=== PATIENT | female | born 1945 | race Caucasian/White ===

== ENCOUNTER → 2017-04-26 | Day surgery (SDC) | payer OTHER ==
[2017-04-18 11:31] VITALS: BMI 48.0
[~2017-04-26] VITALS: Ht 149.9 cm; Wt 110.9 kg
[~2017-04-26] MED LIST: ACET-1256 PO; ADVIN25/60 INH; ALBINS/ INH; AMLO-110 PO; ATOR-24 PO; BENZ100C84 PO; BUTA1CAP17 PO; DOCU-94 PO; EPP3/2 IM; ERGO500037 PO; HYDR12.55 PO; LEVO50TA6 PO; LIDOCAINE HCL 2% 2 ML VIAL (20MG/ML) ONE; LOSA1TAB PO; NORT10CA2 PO; ONDA4TAB46 PO; ONDANSETRON INJ 2 MG/ML 2 ML VIAL IV PRN; PANT40TA PO; POLY335019 PO; PROPOFOL IV EMULSION 10 MG/ML 20 ML VIAL IV ONE; SENNTAB13 PO; SERT-234 PO; VNTHFA/IN INH
[2017-04-26 12:24] VITALS: Ht 149.9 cm; Wt 110.9 kg
--- NOTE | 2017-04-26 12:35 | Endo History and Physical ---
History & Physical Date of Service: Apr 26, 2017. Chief Complaint: HEMATEST POSITIVE STOOL Referring Physician: DR SKINNER History of Present Illness Patient referred for evaluation of anemia associated with heme positive stools. She denies having difficulty swallowing pain with swallowing. She does note having intermittent bright red blood from the rectum which she attributes to hemorrhoids. Past Medical History Diabetes, High Cholesterol, Hypertension Past Surgical History Hx Cardiac Surgery: No Hx Internal Defibrillator: No Hx Pacemaker: No Hx Abdominal Surgery: Yes (COLON RESECTION, WILIAN BSO, CHANEL) Hx of Implantable Prosthesis: No Hx Post-Op Nausea and Vomiting: No Hx Cancer Surgery: No Hx Thoracic Surgery: No Hx Orthopedic: Yes (LT/RT CTR) Hx Urinary Tract Surgery: No Hysterectomy Sigmoid colectomy Cholecystectomy Family History IBD Social History Smoking Status: Never Smoker Hx Substance Use: No Hx Alcohol Use: No Allergies Coded Allergies: BEE STING (Verified Allergy, Unknown, ANAPHYLAXIS, 04/18/17) NO KNOWN DRUG ALLERGIES (Verified Allergy, Unknown, NONE, 04/26/17) Unclassified Drugs (Verified Adverse Reaction, Severe, ASTHMA EXAC TO FRAGRANCES / PERFUMES, 04/18/17) Current Medications Reported Home Medications Medications Dose Route/Sig Max Daily Dose Days Date Category Dose Instructions Vitamin D 73262 Unit (Ergocalciferol) 50,000 Unit Cap 50,000 Unit PO WK 04/18/17 Reported Colace (Docusate Sodium) 100 Mg Cap 1 Cap PO QAM 04/18/17 Reported Miralax (Polyethylene Glycol 3350) 1 Pow Pow 17 Gm PO DAILY PRN 04/18/17 Reported Proventil 0.083% 2.5MG/3ML (Albuterol Sulf) 2.5 Mg/3 Ml Nebu 2.5 Mg INH QID PRN 04/18/17 Reported Zoloft (Sertraline HCl) 100 Mg Tab 100 Mg PO HS 04/18/17 Reported Advair Diskus 250/50 60 Dose (Fluticasone Prop/Salmeterol) 1 Ea Aerp 1 Puff INH BID 04/18/17 Reported Cozaar (Losartan Potassium) 25 Mg Tab 25 Mg PO QAM 09/22/16 Reported Tylenol (Acetaminophen) 500 Mg Tab 500 Mg PO Q6H PRN 09/22/16 Reported Tessalon Perles (Benzonatate) 100 Mg Cap 100 Mg PO UD PRN 09/22/16 Reported Stool Softener Plus Laxat (Sennosides-Docusate Sodium) 1 Tab Tab 1 Tab PO HS 09/22/16 Reported Pamelor (Nortriptyline HCl) 10 Mg Cap 2 Tabs PO HS 09/22/16 Reported Hydrochlorothiazide 12.5 Mg Tab 1 Tab PO 4XWEEK 09/22/16 Reported Monday Levothyroxine Sodium 50 Mcg Tab 1 Tab PO QAM 09/22/16 Reported Protonix (Pantoprazole Sodium) 40 Mg Tab 40 Mg PO QAM 11/13/15 Reported Fioricet (Vbgusgjhwy-Paycmhyujsepv-Wvlaj) 1 Cap Cap 1 Cap PO UD PRN 11/02/15 Reported Norvasc (Amlodipine Besylate) 5 Mg Tab 5 Mg PO NOON 11/02/15 Reported Lipitor (Atorvastatin Calcium) 40 Mg Tab 40 Mg PO QPM 11/02/15 Reported Zofran (Ondansetron HCl) 4 Mg Tab 4 Mg PO Q6H PRN 11/02/15 Reported Epipen (Epinephrine) 0.3 Mg/0.3 Ml Inj 0.3 Mg IM UD PRN 10/06/15 Reported Vital Signs Weight (Kilograms): 110.91 Height (Feet): 4 Height (Inches): 11 Date Time Temp Pulse Resp B/P (MAP) Pulse Ox O2 Delivery O2 Flow Rate FiO2 04/26/17 12:30 36.5 74 18 159/76 (103) 99 Room Air Physical Exam General Appearance: no apparent distress Respiratory/Chest: Auscultation: breath sounds normal Cardiovascular: Heart Auscultation: RRR Abdomen: Inspection & Palpation: soft Assessment and Plan Patient referred for upper endoscopy and colonoscopy to evaluate anemia associated with heme positive stools. We've discussed the risks to include bleeding, infection, perforation, need for follow-up surgeries, and missed colonic polyps.
--- NOTE | 2017-04-26 13:50 | GI REPORT ---
Procedure Date: 04/26/2017 1:10 PM Procedure: Upper GI endoscopy Indications: Iron deficiency anemia Medicines: Monitored Anesthesia Care Complications: No immediate complications. Estimated blood loss: Minimal. Estimated Blood Loss: Estimated blood loss was minimal. Procedure: Pre-Anesthesia Assessment: - Prior to the procedure, a History and Physical was performed, and patient medications, allergies and sensitivities were reviewed. The patient's tolerance of previous anesthesia was reviewed. - The risks and benefits of the procedure and the sedation options and risks were discussed with the patient. All questions were answered and informed consent was obtained. - Patient identification and proposed procedure were verified prior to the procedure by the physician, the nurse and the rn traveling. The procedure was verified in the procedure room. - Pre-procedure physical examination revealed no contraindications to sedation. - ASA Grade Assessment: III - A patient with severe systemic disease. - After reviewing the risks and benefits, the patient was deemed in satisfactory condition to undergo the procedure. - The anesthesia plan was to use monitored anesthesia care (MAC). - Immediately prior to administration of medications, the patient was re-assessed for adequacy to receive sedatives. - The heart rate, respiratory rate, oxygen saturations, blood pressure, adequacy of pulmonary ventilation, and response to care were monitored throughout the procedure. - The physical status of the patient was re-assessed after the procedure. After obtaining informed consent, the endoscope was passed under direct vision. Throughout the procedure, the patient's blood pressure, pulse, and oxygen saturations were monitored continuously. The scope was introduced through the mouth, and advanced to the third part of duodenum. The upper GI endoscopy was accomplished without difficulty. The patient tolerated the procedure well. Findings: The examined esophagus was normal. The Z-line was regular and was found 35 cm from the incisors. The entire examined stomach was normal. The examined duodenum was normal. Biopsies for histology were taken with a cold forceps for evaluation of celiac disease. Estimated blood loss was minimal. Impression: - Normal esophagus. - Z-line regular, 35 cm from the incisors. - Normal stomach. - Normal examined duodenum. Biopsied. Recommendation: - Perform a colonoscopy today. - Await pathology results. Ramya Arias D.O. Ramya Arias, 04/26/2017 1:49:45 PM This report has been signed electronically. Note Initiated On: 04/26/2017 1:10 PM I attest to the content of the Intraoperative Record and orders documented therein, exceptions below
--- NOTE | 2017-04-26 13:54 | GI REPORT ---
Procedure Date: 04/26/2017 1:10 PM Procedure: Colonoscopy Indications: Screening for colorectal malignant neoplasm Medicines: Monitored Anesthesia Care Complications: No immediate complications. Estimated blood loss: Minimal. Estimated Blood Loss: Estimated blood loss was minimal. Procedure: Pre-Anesthesia Assessment: - Prior to the procedure, a History and Physical was performed, and patient medications, allergies and sensitivities were reviewed. The patient's tolerance of previous anesthesia was reviewed. - The risks and benefits of the procedure and the sedation options and risks were discussed with the patient. All questions were answered and informed consent was obtained. - Patient identification and proposed procedure were verified prior to the procedure by the physician, the nurse and the tube room supervisor. The procedure was verified in the procedure room. - Pre-procedure physical examination revealed no contraindications to sedation. - ASA Grade Assessment: III - A patient with severe systemic disease. - After reviewing the risks and benefits, the patient was deemed in satisfactory condition to undergo the procedure. - The anesthesia plan was to use monitored anesthesia care (MAC). - Immediately prior to administration of medications, the patient was re-assessed for adequacy to receive sedatives. - The heart rate, respiratory rate, oxygen saturations, blood pressure, adequacy of pulmonary ventilation, and response to care were monitored throughout the procedure. - The physical status of the patient was re-assessed after the procedure. After I obtained informed consent, the scope was passed under direct vision. Throughout the procedure, the patient's blood pressure, pulse, and oxygen saturations were monitored continuously. The scope was introduced through the anus and advanced to the terminal ileum. The colonoscopy was performed without difficulty. The patient tolerated the procedure well. The quality of the bowel preparation was good. Findings: The perianal and digital rectal examinations were normal. Pertinent negatives include normal sphincter tone. The terminal ileum appeared normal. A 6 mm polyp was found in the hepatic flexure. The polyp was sessile. The polyp was removed with a cold snare. Resection and retrieval were complete. Estimated blood loss was minimal. Two sessile polyps were found in the transverse colon. The polyps were 4 to 6 mm in size. These polyps were removed with a cold snare. Resection and retrieval were complete. Estimated blood loss was minimal. A 6 mm polyp was found in the descending colon. The polyp was sessile. The polyp was removed with a cold snare. Resection and retrieval were complete. Estimated blood loss was minimal. A 3 mm polyp was found in the rectum. The polyp was sessile. The polyp was removed with a cold snare. Resection and retrieval were complete. Estimated blood loss was minimal. Many medium-mouthed diverticula were found in the sigmoid colon. Internal hemorrhoids were found during retroflexion. The hemorrhoids were moderate. The exam was otherwise without abnormality. Impression: - The examined portion of the ileum was normal. - One 6 mm polyp at the hepatic flexure, removed with a cold snare. Resected and retrieved. - Two 4 to 6 mm polyps in the transverse colon, removed with a cold snare. Resected and retrieved. - One 6 mm polyp in the descending colon, removed with a cold snare. Resected and retrieved. - One 3 mm polyp in the rectum, removed with a cold snare. Resected and retrieved. - Mild diverticulosis in the sigmoid colon. - Internal hemorrhoids. - The examination was otherwise normal. Recommendation: - Discharge patient to home (ambulatory). - Advance diet as tolerated today. - Await pathology results. - Repeat colonoscopy in 3 - 5 years for surveillance based on pathology results. - Return to referring physician as previously scheduled. - Consider a CT of the abdomen to evaluate for evidence of a small bowel mass. Ramya Arias D.O. Ramya Arias, DO 04/26/2017 1:54:16 PM This report has been signed electronically. Note Initiated On: 04/26/2017 1:10 PM I attest to the content of the Intraoperative Record and orders documented therein, exceptions below
--- NOTE | 2017-04-26 13:56 | Discharge Instructions ---
Endoscopy Patient Instructions Date / Procedure(s) Performed Apr 26, 2017. Colonoscopy, EGD Allergy Information Coded Allergies: BEE STING (Verified Allergy, Unknown, ANAPHYLAXIS, 04/26/17) NO KNOWN DRUG ALLERGIES (Verified Allergy, Unknown, NONE, 04/26/17) Unclassified Drugs (Verified Adverse Reaction, Severe, ASTHMA EXAC TO FRAGRANCES / PERFUMES, 04/26/17) Discharge Date / Findings Apr 26, 2017. Normal upper endoscopy Several colonic polyps removed today Internal hemorrhoids Mild diverticulosis of the colon Medication Instructions Reported Home Medications Medications Dose Route/Sig Max Daily Dose Days Date Category Dose Instructions Vitamin D 43691 Unit (Ergocalciferol) 50,000 Unit Cap 50,000 Unit PO WK 04/18/17 Reported Colace (Docusate Sodium) 100 Mg Cap 1 Cap PO QAM 04/18/17 Reported Miralax (Polyethylene Glycol 3350) 1 Pow Pow 17 Gm PO DAILY PRN 04/18/17 Reported Proventil 0.083% 2.5MG/3ML (Albuterol Sulf) 2.5 Mg/3 Ml Nebu 2.5 Mg INH QID PRN 04/18/17 Reported Zoloft (Sertraline HCl) 100 Mg Tab 100 Mg PO HS 04/18/17 Reported Advair Diskus 250/50 60 Dose (Fluticasone Prop/Salmeterol) 1 Ea Aerp 1 Puff INH BID 04/18/17 Reported Cozaar (Losartan Potassium) 25 Mg Tab 25 Mg PO QAM 09/22/16 Reported Tylenol (Acetaminophen) 500 Mg Tab 500 Mg PO Q6H PRN 09/22/16 Reported Tessalon Perles (Benzonatate) 100 Mg Cap 100 Mg PO UD PRN 09/22/16 Reported Stool Softener Plus Laxat (Sennosides-Docusate Sodium) 1 Tab Tab 1 Tab PO HS 09/22/16 Reported Pamelor (Nortriptyline HCl) 10 Mg Cap 2 Tabs PO HS 09/22/16 Reported Hydrochlorothiazide 12.5 Mg Tab 1 Tab PO 4XWEEK 09/22/16 Reported Monday Levothyroxine Sodium 50 Mcg Tab 1 Tab PO QAM 09/22/16 Reported Protonix (Pantoprazole Sodium) 40 Mg Tab 40 Mg PO QAM 11/13/15 Reported Fioricet (Qgklvkfkay-Lsydgfrulxhof-Guapc) 1 Cap Cap 1 Cap PO UD PRN 11/02/15 Reported Norvasc (Amlodipine Besylate) 5 Mg Tab 5 Mg PO NOON 11/02/15 Reported Lipitor (Atorvastatin Calcium) 40 Mg Tab 40 Mg PO QPM 11/02/15 Reported Zofran (Ondansetron HCl) 4 Mg Tab 4 Mg PO Q6H PRN 11/02/15 Reported Epipen (Epinephrine) 0.3 Mg/0.3 Ml Inj 0.3 Mg IM UD PRN 10/06/15 Reported Provider Instructions Activity Restrictions - No exercising or heavy lifting for 24 hours. - Do not drink alcohol the day of the procedure. - Do not drive a car or operate machinery until the day after the procedure. - Do not make any important decisions or sign important papers in 24 hours after the procedure. Following Day: - Return to full activity which may include returning to work/school. Diet Start your diet with liquids and light foods (jello, soup, juice, toast). Then eat your usual diet if not nauseated. Treatment For Common After Affects For mild abdominal pain, bloating, or excessive gas: - Rest - Eat lightly - Lie on right side Follow-Up Information Follow-up with DR SKINNER as scheduled Await pathology results Will likely recommend repeat colonoscopy in 3-5 years Anesthesia Information What You Should Know You have had a procedure that required some medicine to reduce anxiety and discomfort. This treatment is called moderate sedation. After receiving the treatment, you may be sleepy, but you will be able to breathe on your own. The effects of the treatment may last for several hours. Follow these instructions along with Activity/Diet recommendations noted above: * Do NOT do anything where dizziness or clumsiness would be dangerous. * Rest quietly at home today, then you can be up and about tomorrow. * Have a responsible person stay with you the rest of today. * You may have had an I.V. today. If so, you may take the dressing off later today. Recommendations Call your doctor if: * Trouble breathing * Continuous vomiting for more than 24 hours * Temperature above 101 degrees * Severe abdominal pain or bloating * Pain not relieved by pain medicine ordered * There is increased drainage or redness from any incision * A large amount of rectal bleeding greater than 2-3 tablespoons. (If you had a polyp/s removed or have hemorrhoids, a small amount of blood - from the rectum is to be expected.) * You have any unanswered questions or concerns. IN THE EVENT OF A SERIOUS EMERGENCY, GO TO THE NEAREST EMERGENCY ROOM Your discharge instructions were prepared by provider Ramya Arias. Patient Instructions Signature Page Myrtle Whitman Patient (or Guardian) Signature/Date: I have read and understand the instructions given to me by my caregivers. Caregiver/RN/Doctor Signature/Date: The above-named patient and/or guardian has received patient instructions on this date. + Original Patient Signature Page (only) stays with chart. Please make copy for patient.
--- NOTE | 2017-04-26 14:06 | Anesthesiology Progress Note ---
Anesthesia Post Op Note Date & Time Apr 26, 2017 at 14:06 Vital Signs Pain Intensity: 0 Vital Signs Past 12 Hours Date Time Temp Pulse Resp B/P (MAP) Pulse Ox O2 Delivery O2 Flow Rate FiO2 04/26/17 12:30 36.5 74 18 159/76 (103) 99 Room Air Notes Mental Status: alert / awake / arousable, participated in evaluation Pt Amnestic to Procedure: Yes Nausea / Vomiting: adequately controlled Pain: adequately controlled Airway Patency, RR, SpO2: stable & adequate BP & HR: stable & adequate Hydration State: stable & adequate Anesthetic Complications: no major complications apparent
[2017-04-26 14:19] VITALS: BP 147/76; PULSE 64; O2SAT 100
== END | disposition home or self-care (01) ==
LOC: C.GI 11:45
PROVIDERS: ATTEND Internal Medicine Gastroenterology
DX: R19.5 Other fecal abnormalities (principal); D50.9 Iron deficiency anemia, unspecified; D12.3 Benign neoplasm of transverse colon; D12.4 Benign neoplasm of descending colon; K62.1 Rectal polyp; K64.8 Other hemorrhoids; K57.30 Diverticulosis of large intestine without perforation or abscess without bleeding; F32.9 Major depressive disorder, single episode, unspecified; I48.0 Paroxysmal atrial fibrillation; E66.01 Morbid (severe) obesity due to excess calories; E11.9 Type 2 diabetes mellitus without complications; J45.909 Unspecified asthma, uncomplicated; G47.33 Obstructive sleep apnea (adult) (pediatric); Z68.42 Body mass index [BMI] 45.0-49.9, adult; Z90.49 Acquired absence of other specified parts of digestive tract; Z79.899 Other long term (current) drug therapy; Z86.73 Personal history of transient ischemic attack (TIA), and cerebral infarction without residual deficits

== ENCOUNTER 2017-05-29 16:28 | Emergency (ER) | payer OTHER ==
[~2017-05-29] VITALS: Ht 149.9 cm; Wt 109.8 kg
[~2017-05-29 16:28] MED LIST changes: -LIDOCAINE HCL 2% 2 ML VIAL (20MG/ML) ONE; -ONDANSETRON INJ 2 MG/ML 2 ML VIAL IV PRN; -PROPOFOL IV EMULSION 10 MG/ML 20 ML VIAL IV ONE; -VNTHFA/IN INH
[2017-05-29 16:35] VITALS: TEMP 36.5; Ht 149.9 cm; Wt 109.8 kg
[2017-05-29 16:49] VITALS: O2SAT 99
[2017-05-29] MEDS ORDERED: LORAZEPAM 2 MG/ML 1 ML VIAL IV STA (16:53)
[2017-05-29] MEDS ORDERED: ASPIRIN 81 MG CHEW PO STA (16:53)
[2017-05-29 17:32] LABS: BASO ABS # 0.05 K/uL (0-0.2); EOS % 2.5 %; EOS ABS # 0.13 K/uL (0-0.5); HEMATOCRIT 34.3 % (37-47); HEMOGLOBIN 12.1 g/dL (12.0-16.0); IG# 0.01 K/uL (0.00-0.02); LYMPH ABS # 1.36 K/uL (1.2-3.4); MEAN CELL VOLUME 88.4 fL (80-100); MEAN CORPUSCULAR HEMOGLOBIN 31.2 pg (25-34); MEAN CORPUSCULAR HGB CONC 35.3 g/dl (32-36); MEAN PLATELET VOLUME 9.6 fL (7.4-10.4); MONO % 9.2 %; MONO ABS # 0.48 K/uL (0.11-0.59); NEUT % 61.1 %; PLATELET COUNT 188 K/uL (130-400); RED CELL DISTRIBUTION WIDTH CV 13.3 % (11.5-14.5); RED CELL DISTRIBUTION WIDTH SD 42.6 fL (36.4-46.3); WHITE BLOOD COUNT 5.23 K/uL (4.8-10.8)
--- NOTE | 2017-05-29 17:36 | DIAGNOSTIC IMAGING REPORT ---
CT HEAD WITHOUT CONTRAST (CT) CLINICAL HISTORY: Change in mental status. Confusion. COMPARISON STUDY: November 02, 2015 TECHNIQUE: Axial CT of the brain is performed from the vertex to the skull base. IV contrast was not administered for this examination. A dose lowering technique was utilized adhering to the principles of ALARA. CT DOSE: 537.48 mGy.cm FINDINGS: No intra or extra-axial mass lesions are visualized. There is no CT evidence of acute cortical infarction. There is no evidence of midline shift. There is no acute hemorrhage. No calvarial fractures are visualized. There are minor white matter hypodensities likely on a small vessel basis. There is no evidence of pathologic ventricular dilatation. There is no evidence of acute sinusitis IMPRESSION: No acute intracranial findings Electronically signed by: Festus Cotton M.D. 05/29/2017 5:34 PM Dictated Date/Time: 05/29/2017 5:34 PM
--- NOTE | 2017-05-29 17:49 | DIAGNOSTIC IMAGING REPORT ---
CHEST 2 VIEWS ROUTINE CLINICAL HISTORY: Shortness of breath COMPARISON STUDY: 10/29/2013 FINDINGS: The cardiac and mediastinal contours remain stable. There is no failure. There is no focal pulmonary consolidation. There are no pleural effusions. There are calcified mediastinal lymph nodes present. There are degenerative changes within the spine.[ IMPRESSION: No active disease in the chest. Electronically signed by: Festus Cotton M.D. 05/29/2017 5:48 PM Dictated Date/Time: 05/29/2017 5:47 PM
[2017-05-29 17:54] LABS: BLOOD UREA NITROGEN 18 mg/dl (7-18); CALCIUM 8.8 mg/dl (8.5-10.1); CARBON DIOXIDE 27 mmol/L (21-32); CREATININE 1.19 mg/dl (0.60-1.20); GLUCOSE 108 mg/dl (70-99); POTASSIUM 3.8 mmol/L (3.5-5.1); SODIUM 142 mmol/L (136-145)
[2017-05-29] MEDS ORDERED: MELO-84 PO (18:23)
--- NOTE | 2017-05-29 19:21 | EMERGENCY ROOM VISIT NOTE ---
History Report prepared by Anish: Silvia Monteiro Under the Supervision of: Dr. Zay Mitchell M.D. First contact with patient: 16:50 Chief Complaint: SHORTNESS OF BREATH Stated Complaint: CHEST TIGHTNESS, SOB Nursing Triage Summary: Patient's son committed suicide a few days ago. Found out this AM that her mother and developed chest tightness and shortness of breath. EMS was called. Found patient anxious. Has history of asthma, HTN, DM. Patient was given 0.5mg ativan with EMS. VSS. 22g IV in left hand placed by EMS. History of Present Illness The patient is a 71 year old female who presents with family members to the Emergency Room with complaints of persistent SOB starting CRYSTAL CALIBRATOR. The patient presents to the ED by EMS. She was given Ativan in route. She started feeling SOB after she found out that her mother today. Her son also committed suicide several days ago. She has tightness across her chest. Her symptoms improved with the Ativan. Her son notes that she has had 2 episodes of staring blankly and confusion which occurred when she received the bad news. She denies any cough, fever, abdominal pain, fall, or head injury. She has no thoughts of hurting herself. She has a history of hypertension, asthma, and diabetes. She has eaten today. She denies any recent travel or hormone use. She has a history of depression. Source of History: patient, family Onset: CRYSTAL CALIBRATOR Position: other (global) Quality: other (SOB) Timing: other (persistent) Modifying Factors (Relieving): other (Ativan) Associated Symptoms: + chest pain, No fevers, No cough, No abdominal pain Review of Systems See HPI for pertinent positives and negatives. A total of ten systems were reviewed and were otherwise negative. Past Medical & Surgical Medical Problems: (1) Asthma (2) Benign hypertension (3) Bulging disc (4) Hysterectomy (5) Lupus (6) Migraines (7) TIA Family History FH: Alzheimers disease Social History Smoking Status: Never Smoker Alcohol Use: none Drug Use: none Marital Status: Housing Status: lives with family Occupation Status: employed Current/Historical Medications Scheduled Amlodipine (Norvasc), 5 MG PO DAILY Atorvastatin (Lipitor), 40 MG PO QPM Docusate Sodium (Colace), 100 MG PO BID Ergocalciferol (Vitamin D 34515 Unit), 50,000 UNIT PO WK Fluticasone Prop/Salmeterol (Advair Diskus 250/50 60 Dose), 1 PUFF INH BID Hydrochlorothiazide (Hydrochlorothiazide), 12.5 MG PO 3XWK Levothyroxine Sodium (Levothyroxine Sodium), 1 TAB PO QAM Losartan Potassium (Cozaar), 25 MG PO QAM Meloxicam (Mobic), 15 MG PO DAILY Nortriptyline (Pamelor), 30 MG PO HS Pantoprazole (Protonix), 40 MG PO QAM Sennosides-Docusate Sodium (Stool Softener Plus Laxat), 1 TAB PO HS Sertraline (Zoloft), 100 MG PO DAILY Scheduled PRN Acetaminophen (Tylenol), 500 MG PO Q6H PRN for Pain Albuterol Sulf (Proventil 0.083% 2.5MG/3ML), 2.5 MG INH QID PRN for SOB/Wheezing Benzonatate (Tessalon Perles), 100 MG PO UD PRN for Cough Nwtlyqtdem-Ebrfazidtspng-Rlvrb (Fioricet), 1 CAP PO Q6 PRN for Headache Epinephrine (Epipen), 0.3 MG IM UD PRN for ALLERGIC REACTION Ondansetron Hcl (Zofran), 4 MG PO Q8 PRN for NAUSEA Polyethylene Glycol 3350 (Miralax), 17 GM PO DAILY PRN for Constipation Allergies Coded Allergies: BEE STING (Verified Allergy, Unknown, ANAPHYLAXIS, 04/26/17) NO KNOWN DRUG ALLERGIES (Verified Allergy, Unknown, NONE, 04/26/17) Unclassified Drugs (Verified Adverse Reaction, Severe, ASTHMA EXAC TO FRAGRANCES / PERFUMES, 04/26/17) Physical Exam Vital Signs Date Time Temp Pulse Resp B/P (MAP) Pulse Ox O2 Delivery O2 Flow Rate FiO2 05/29/17 20:01 64 16 134/78 97 05/29/17 17:49 63 20 131/69 99 Room Air 05/29/17 17:13 69 05/29/17 16:49 99 Room Air 05/29/17 16:35 Room Air 95 05/29/17 16:35 36.5 63 22 148/70 96 Room Air Physical Exam Physical Exam GENERAL: She is tearful. She is oriented to person, place, and time. She appears well-developed and well-nourished. She does not appear distressed. ____ HENT: Exam performed. Head: Normocephalic and atraumatic. Right Ear: External ear normal. No mastoid tenderness. Left Ear: External ear normal. No mastoid tenderness. Mouth/Throat: The oropharynx is clear and moist. No trismus in the jaw. No dental abscesses or uvula swelling. No oropharyngeal exudate or tonsillar abscesses. ____ EYES: Conjunctivae and EOM are normal. Pupils are equal, round, and reactive to light. Right eye exhibits no discharge. Left eye exhibits no discharge. No scleral icterus. ____ NECK: Normal range of motion. Neck supple. No JVD present. No spinous process tenderness present. No carotid bruit present. No rigidity. No tracheal deviation and normal range of motion present. No Brudzinski's sign and no Kernig 's sign noted. ____ CV: Normal rate, regular rhythm, normal heart sounds and intact distal pulses. There is no peripheral edema. Palpable radial pulses bue. ____ PULM/CHEST: Effort normal and breath sounds normal. No respiratory distress. No stridor. She has no wheezes. She has no rales. Chest Wall: She exhibits no tenderness. ____ ABD: The abdomen is soft. Bowel sounds are normal. She has no distension. No mass is present. There is no tenderness. There is no rebound, no guarding, no Brandt's sign and no tenderness at McBurney's point. Rovsig negative MUSC/SKEL: Normal range of motion. There is no peripheral edema, tenderness or deformity. LYMPH: No cervical adenopathy. ____ NEURO: She is alert and oriented to person, place, and time. She has normal strength. No cranial nerve deficit or sensory deficit. Coordination and gait normal. GCS eye subscore is 4. GCS verbal subscore is 5. GCS motor subscore is 6. Cerebellar tests wnl. ____ SKIN: Skin is warm and dry. She is not diaphoretic. ____ PSYCH: She is anxious and tearful. Her behavior is normal. Judgment and thought content normal. ____ Medical Decision & Procedures ER Provider Diagnostic Interpretation: Radiology results as stated below per my review and radiologist interpretation: CHEST 2 VIEWS ROUTINE CLINICAL HISTORY: Shortness of breath COMPARISON STUDY: 10/29/2013 FINDINGS: The cardiac and mediastinal contours remain stable. There is no failure. There is no focal pulmonary consolidation. There are no pleural effusions. There are calcified mediastinal lymph nodes present. There are degenerative changes within the spine.[ IMPRESSION: No active disease in the chest. Electronically signed by: Festus Cotton M.D. 05/29/2017 5:48 PM Dictated Date/Time: 05/29/2017 5:[address] HEAD WITHOUT CONTRAST (CT) CLINICAL HISTORY: Change in mental status. Confusion. COMPARISON STUDY: November 02, 2015 TECHNIQUE: Axial CT of the brain is performed from the vertex to the skull base. IV contrast was not administered for this examination. A dose lowering technique was utilized adhering to the principles of ALARA. CT DOSE: 537.48 mGy.cm FINDINGS: No intra or extra-axial mass lesions are visualized. There is no CT evidence of acute cortical infarction. There is no evidence of midline shift. There is no acute hemorrhage. No calvarial fractures are visualized. There are minor white matter hypodensities likely on a small vessel basis. There is no evidence of pathologic ventricular dilatation. There is no evidence of acute sinusitis IMPRESSION: No acute intracranial findings Electronically signed by: Festus Cotton M.D. 05/29/2017 5:34 PM Dictated Date/Time: 05/29/2017 5:34 PM Laboratory Results 05/29/17 17:15 Red Blood Count 3.88, Mean Corpuscular Volume 88.4, Mean Corpuscular Hemoglobin 31.2, Mean Corpuscular Hemoglobin Concent 35.3, Mean Platelet Volume 9.6, Neutrophils (%) (Auto) 61.1, Lymphocytes (%) (Auto) 26.0, Monocytes (%) (Auto) 9.2, Eosinophils (%) (Auto) 2.5, Basophils (%) (Auto) 1.0, Neutrophils # (Auto) 3.20, Lymphocytes # (Auto) 1.36, Monocytes # (Auto) 0.48, Eosinophils # (Auto) 0.13, Basophils # (Auto) 0.05 05/29/17 17:15 Test 05/29/17 17:15 White Blood Count 5.23 K/uL (4.8-10.8) Red Blood Count 3.88 M/uL (4.2-5.4) Hemoglobin 12.1 g/dL (12.0-16.0) Hematocrit 34.3 % (37-47) Mean Corpuscular Volume 88.4 fL (80-100) Mean Corpuscular Hemoglobin 31.2 pg (25-34) Mean Corpuscular Hemoglobin Concent 35.3 g/dl (32-36) Platelet Count 188 K/uL (130-400) Mean Platelet Volume 9.6 fL (7.4-10.4) Neutrophils (%) (Auto) 61.1 % Lymphocytes (%) (Auto) 26.0 % Monocytes (%) (Auto) 9.2 % Eosinophils (%) (Auto) 2.5 % Basophils (%) (Auto) 1.0 % Neutrophils # (Auto) 3.20 K/uL (1.4-6.5) Lymphocytes # (Auto) 1.36 K/uL (1.2-3.4) Monocytes # (Auto) 0.48 K/uL (0.11-0.59) Eosinophils # (Auto) 0.13 K/uL (0-0.5) Basophils # (Auto) 0.05 K/uL (0-0.2) RDW Standard Deviation 42.6 fL (36.4-46.3) RDW Coefficient of Variation 13.3 % (11.5-14.5) Immature Granulocyte % (Auto) 0.2 % Immature Granulocyte # (Auto) 0.01 K/uL (0.00-0.02) Anion Gap 7.0 mmol/L (3-11) Est Creatinine Clear Calc Drug Dose 49.2 ml/min Estimated GFR () 53.9 Estimated GFR (Non- 46.5 BUN/Creatinine Ratio 15.4 (10-20) Calcium Level 8.8 mg/dl (8.5-10.1) Troponin I < 0.015 ng/ml (0-0.045) Laboratory results reviewed by me Medications Administered Medications (Trade) Dose Ordered Sig/Madeline Route Start Time Stop Time Status Last Admin Dose Admin Aspirin (Aspirin Chew) 324 mg NOW STAT PO 05/29/17 16:53 05/29/17 16:59 DC 05/29/17 17:05 324 MG Lorazepam (Ativan Inj) 1 mg NOW STAT IV 05/29/17 16:53 05/29/17 16:59 DC 05/29/17 17:05 1 MG ECG Per My Interpretation Indication: chest pain Rate (beats per minute): 66 Rhythm: sinus rhythm Findings: other (MS, QRS, and QTc wnl, baseline artifact due to patient's motion, no ST elevation or ST depression) ED Course 1651: The patient was evaluated in room B10. A complete history and physical exam was performed. 1831: Vital signs stable, labs and imaging within normal limits. I reevaluated the patient. She is resting comfortably. She is not reporting any chest pain, difficulty breathing. She is alert and oriented x3. Pt states that she feels better after Ativan. 1900: I discussed the patient's case with Dr. Syed, [facility] internal medicine. He agrees with the plan to have the patient follow up tomorrow. 1909: DISCHARGE - Plan of care discussed with patient and questions answered. The patient was given both verbal and printed discharge instructions. The patient verbalized understanding and ability to comply. The patient is to seek outpatient follow up as noted in the discharge instructions. The patient verbalized understanding and ability to comply. The patient is discharged in stable condition. The patient was instructed to return for worsening symptoms. Medical Decision Vital signs stable, labs and imaging within normal limits. I reevaluated the patient. She is resting comfortably. She is not reporting any chest pain, difficulty breathing. She is alert and oriented x3. Pt states that she feels better after Ativan. I discussed the patient's case with Dr. Syed, [facility] internal medicine. He agrees with the plan to have the patient follow up tomorrow. DISCHARGE - Plan of care discussed with patient and questions answered. The patient was given both verbal and printed discharge instructions. The patient verbalized understanding and ability to comply. The patient is to seek outpatient follow up as noted in the discharge instructions. The patient verbalized understanding and ability to comply. The patient is discharged in stable condition. The patient was instructed to return for worsening symptoms. Medication Reconcilliation Current Medication List: was personally reviewed by me Blood Pressure Screening Patient's blood pressure: Elevated blood pressure Blood pressure disposition: Elevated BP felt to be situational Consults Time Called: 1849 Consulting Physician: Dr. Syed, [facility] internal medicine Returned Call: 1900 I discussed the patient's case with him. He agrees with the plan to have the patient follow up tomorrow. Impression Primary Impression: Stress and adjustment reaction Scribe Attestation The scribe's documentation has been prepared under my direction and personally reviewed by me in its entirety. I confirm that the note above accurately reflects all work, treatment, procedures, and medical decision making performed by me. The chart was completed utilizing [employer] Speech voice recognition software. Grammatical errors, random word insertions, pronoun errors, and incomplete sentences are an occasional consequence of this system due to software limitations, ambient noise, and hardware issues. Any formal questions or concerns about the content, text, or information contained within the body of this dictation should be directly addressed to the physician for clarification. Departure Information Dispostion Home / Self-Care Referrals Armand Syed MD (PCP) Forms HOME CARE DOCUMENTATION FORM, IMPORTANT VISIT INFORMATION Patient Instructions My [facility], Shortness of Breath Control Stress
[2017-05-29 20:01] VITALS: BP 134/78; PULSE 64; O2SAT 97
== END 2017-05-29 20:03 | disposition home or self-care (01) ==
LOC: EDBD 16:28 → C.EDB 16:31
DX: F43.0 Acute stress reaction (principal); F43.20 Adjustment disorder, unspecified; I10 Essential (primary) hypertension; E11.9 Type 2 diabetes mellitus without complications; J45.909 Unspecified asthma, uncomplicated; F32.9 Major depressive disorder, single episode, unspecified; Z86.73 Personal history of transient ischemic attack (TIA), and cerebral infarction without residual deficits; Z87.39 Personal history of other diseases of the musculoskeletal system and connective tissue; Z91.030 Bee allergy status; Z90.710 Acquired absence of both cervix and uterus

== ENCOUNTER 2018-07-23 15:34 | Inpatient (IN) ==
[2018-07-23] MEDS ORDERED: SODIUM CHLORIDE 0.9% 1000ML 1,000 ML IV ONE (15:44)
[2018-07-23 15:57] LABS: Basophils # (auto) 0.04 K/uL (0-0.2); Basophils % (auto) 0.5 %; Eosinophils # (auto) 0.16 K/uL (0-0.5); Eosinophils % (auto) 1.9 %; Hematocrit (blood only) 37.7 % (37-47); Immature Granulocytes # (auto) 0.02 K/uL (0.00-0.02); Immature Granulocytes % (auto) 0.2 %; Lymphocytes # (auto) 1.77 K/uL (1.2-3.4); Lymphocytes % (auto) 21.4 %; Mean Corpuscular Hgb Conc 34.5 g/dL (32-36); Mean Corpuscular Volume 88.3 fL (80-100); Monocytes # (auto) 0.48 K/uL (0.11-0.59); Monocytes % (auto) 5.8 %; Neutrophils # (auto) 5.82 K/uL (1.4-6.5); Neutrophils % (auto) 70.2 %; Platelet Count 223 K/uL (130-400); RDW Coefficient of Variation 13.9 % (11.5-14.5); RDW Standard Deviation 44.8 fL (36.4-46.3); Red Blood Count 4.27 M/uL (4.2-5.4); White Blood Count 8.29 K/uL (4.8-10.8)
[2018-07-23] MEDS ORDERED: ONDANSETRON INJ 2 MG/ML 2 ML VIAL IV STA (15:59)
[2018-07-23] MEDS ORDERED: ACETAMINOPHEN 1,000 MG/100 ML VIAL IV STA (15:59)
[2018-07-23] MEDS ORDERED: FAMOTIDINE 20MG/5ML IV PUSH IV STA (16:02)
[2018-07-23 16:12] LABS: Alanine Aminotransferase 39 U/L (12-78); Albumin Level 3.9 gm/dl (3.4-5.0); Aspartate Aminotransferase 29 U/L (15-37); BUN Creatinine Ratio 17.1 (10-20); Blood Urea Nitrogen 18 mg/dl (7-18); Calcium 9.2 mg/dl (8.5-10.1); Carbon Dioxide 25 mmol/L (21-32); Chloride 108 mmol/L (98-107); Creatinine Clr Calc Pharmacy 55.9 ml/min; Est GFR (African American) 61.6; Est GFR (Non-African American) 53.2; Glucose 129 mg/dl (70-99); Magnesium 2.3 mg/dl (1.8-2.4); Potassium 4.2 mmol/L (3.5-5.1); Sodium 140 mmol/L (136-145)
--- NOTE | 2018-07-23 16:21 | XRay Report ---
XR chest 1V portable CLINICAL HISTORY: 72 years-old Female presenting with Chest Pain. TECHNIQUE: Portable upright AP view of the chest was obtained. COMPARISON: 10/29/2013. FINDINGS: Atherosclerosis of the aortic arch. Cardiac silhouette mildly enlarged. No focal opacity. No large ef fusion or pneumothorax. Degenerative changes of the thoracic spine. Mild degenerative changes of the shoulders. Upper abdomen normal. IMPRESSION: 1. Mild cardiomegaly. No convincing evidence of acute cardiopulmonary disease. Electronically signed by: Ryley Lockett M.D. 07/23/2018 4:20 PM
[2018-07-23 16:23] LABS: Albumin Globulin Ratio 0.9 (0.9-2); Alkaline Phosphatase 161 U/L (45-117); Bilirubin,Total 0.4 mg/dl (0.2-1); Globulin 4.4 gm/dl (2.5-4.0); Phosphorus 3.9 mg/dl (2.5-4.9); Total Protein 8.3 gm/dl (6.4-8.2); Troponin I < 0.015 ng/ml (0-0.045)
[2018-07-23 16:36] LABS: T4 Free Thyroxine 1.04 ng/dl (0.8-1.6)
[2018-07-23] MEDS ORDERED: IOVERSOL 100ml IV PRN (17:31)
--- NOTE | 2018-07-23 17:50 | CT Scan Report ---
CT head/brain wo con CLINICAL HISTORY: 72 years-old Female presenting with dizziness, fall pain. TECHNIQUE: Multidetector CT imaging of the head was performed without the use of intravenous contrast . IV contrast: None. One or more dose lowering techniques were used consistent with the principles of ALARA (as low as reasonably achievable), including automatic exposure control, mA or kV adjustment t o individual patient size, and/or use of iterative reconstruction. COMPARISON: 05/29/2017. CT DOSE (mGy.cm): The estimated cumulative dose is 2282.88 mGy.cm. FINDINGS: Office Copy Selector topogram: Unremarkable. Ventricles and sulci normal in size. No hemorrhage. Brain parenchyma normal in appearance with preser mone fontanez-white differentiation. No acute territorial infarct. No mass effect or midline shift. No ext ra-axial fluid collection. Paranasal sinuses and mastoid air cells clear. Calvarium intact. IMPRESSION: 1. No acute intracranial abnormality. Electronically signed by: Ryley Lockett M.D. 07/23/2018 5:49 PM
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
[2018-07-23 19:43] LABS: Appearance Urine Clear (Clear); Bilirubin Urine Negative (Negative); Blood Urine Negative (Negative); Color Urine Yellow; Glucose Urine UA Negative (Negative); Ketones Urine Negative (Negative); Leukocyte Esterase Urine Negative (Negative); Nitrite Urine Negative (Negative); Protein Urine Negative (Negative); Specific Gravity Urine 1.031 (1.000-1.030); Urobilinogen Urine Negative (Negative); pH Urine 5.5 (4.5-7.5)
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
[2018-07-23] MEDS ORDERED: ZOLPIDEM TARTRATE 5 MG TAB PO PRN (20:49)
[2018-07-23] MEDS ORDERED: IBUPROFEN 200 MG TAB PO PRN (20:49)
[2018-07-23] MEDS ORDERED: MoRPHine SULFATE 4 MG/ML 1 ML CARP\\VIAL IV PRN (20:49)
[2018-07-23] MEDS ORDERED: OXYCODONE/ACETAMINOPHEN 5mg/325mg TAB PO PRN ×2 (20:49)
[2018-07-23] MEDS ORDERED: MoRPHine SULFATE 2 MG/ML CARP IV PRN (20:49)
[2018-07-23] MEDS: ACETAMINOPHEN 325 MG TAB PO PRN (22:25)
[2018-07-23] MEDS: LACTATED RINGER'S 1,000 ML IV SCH (22:27)
[2018-07-23] MEDS ORDERED: Nursing to Pharmacy Communication ONE (22:54)
[2018-07-24] MEDS: ACETAMINOPHEN 325 MG TAB PO PRN (05:38)
[2018-07-24] MEDS ORDERED: CEFAZOLIN 2000MG 2,000 MG/15 ML SYR IV SCH (06:00)
[2018-07-24] MEDS ORDERED: EPINEPHRINE ADULT AUTO-INJECT 0.3 MG SYR IM PRN (06:10)
[2018-07-24] MEDS ORDERED: ALBUTEROL 0.083% NEBU SOLN 3 ML VIAL INH PRN (06:10)
[2018-07-24] MEDS ORDERED: LORazepam 0.5 MG TAB PO PRN (06:10)
[2018-07-24] MEDS ORDERED: BUTALBITAL/ACETAMIN/CAFFEINE TAB PO PRN (06:10)
[2018-07-24] MEDS ORDERED: HydrALAZINE HCL 20 MG/ML VIAL IV PRN (06:11)
[2018-07-24] MEDS: LACTATED RINGER'S 1,000 ML IV SCH ×2 (07:47→15:57)
[2018-07-24] MEDS: LEVOTHYROXINE SODIUM 50 MCG TABLET PO SCH (07:47)
[2018-07-24] MEDS: PANTOprazole 40 MG TAB PO SCH (08:59)
[2018-07-24] MEDS: SERTRALINE HCL 100 MG TABLET PO SCH (08:59)
[2018-07-24] MEDS: DOCUSATE SODIUM 100 MG CAP PO SCH (09:00)
[2018-07-24] MEDS: FLUTICASONE/SALMETEROL 250/50 (ADVAIR) 14 PUFF/1 INHALER INH SCH ×2 (09:00→22:09)
[2018-07-24] MEDS: AMLODIPINE BESYLATE 5 MG TAB PO SCH (09:00)
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
[2018-07-24] MEDS ORDERED: GLUCOSE 10 TABS/TUBE PO PRN (12:00)
[2018-07-24] MEDS ORDERED: GLUCAGON FOR INJ 1 MG VIAL IM PRN (12:00)
[2018-07-24] MEDS ORDERED: CARBOHYDRATES FOR HYPOGLYCEMIA PO PRN (12:00)
[2018-07-24] MEDS ORDERED: DEXTROSE 50% 50 ML SYRINGE IV PRN (12:00)
[2018-07-24] MEDS ORDERED: GLUCOSE 40% GEL 15 GM TUBE PO PRN (12:00)
[2018-07-24] MEDS: ONDANSETRON INJ 2 MG/ML 2 ML VIAL IV PRN (12:01)
[2018-07-24 12:39] LABS: Basophils # (auto) 0.05 K/uL (0-0.2); Basophils % (auto) 0.9 %; Eosinophils # (auto) 0.11 K/uL (0-0.5); Eosinophils % (auto) 2.1 %; Hematocrit (blood only) 34.8 % (37-47); Hemoglobin 11.8 g/dL (12.0-16.0); Immature Granulocytes # (auto) 0.03 K/uL (0.00-0.02); Immature Granulocytes % (auto) 0.6 %; Lymphocytes # (auto) 1.28 K/uL (1.2-3.4); Lymphocytes % (auto) 24.2 %; Mean Corpuscular Volume 89.2 fL (80-100); Mean Platelet Volume 9.5 fL (7.4-10.4); Monocytes # (auto) 0.44 K/uL (0.11-0.59); Monocytes % (auto) 8.3 %; Neutrophils # (auto) 3.39 K/uL (1.4-6.5); Neutrophils % (auto) 63.9 %; Platelet Count 184 K/uL (130-400); RDW Coefficient of Variation 13.9 % (11.5-14.5); RDW Standard Deviation 45.5 fL (36.4-46.3)
[2018-07-24 12:49] LABS: Mean Corpuscular Hgb Conc 33.9 g/dL (32-36)
[2018-07-24 12:59] LABS: BUN Creatinine Ratio 15.7 (10-20); Calcium 9.1 mg/dl (8.5-10.1); Creatinine Clr Calc Pharmacy 64.4 ml/min; Est GFR (African American) 73.1; Est GFR (Non-African American) 63.1; Potassium 4.1 mmol/L (3.5-5.1)
--- NOTE | 2018-07-24 13:31 | Consultation Report ---
DATE OF CONSULTATION: 07/24/2018 CHIEF COMPLAINT: Abdominal pain, found to have incarcerated ventral hernia, plan for surgery. HISTORY OF PRESENT ILLNESS: This is a 72-year-old female with past medical history significant for diabetes, hypothyroidism, asthma moderate persistent diastolic dysfunction, chronic kidney disease stage III, morbid obesity, overactive bladder, chronic migraine, depression, generalized anxiety disorder, presents with abdominal pain and found to have multiple ventral hernias and incarceration of the umbilicus, surgery was planned today with ventral hernia repair and possible mesh.We are consulted for medical management. The patient still has some abdominal pain. Denies any chest pain, no shortness of breath, no cough, no headache, no blurred vision, no runny nose, no sore throat, no nausea. Resting comfortably and hemodynamically stable.During the pain she had an episode of almost passing out. About a 1-2 month earlier also she passed out in bathroom. ALLERGIES: BEE VENOM. PAST MEDICAL HISTORY: As mentioned. PAST SURGICAL HISTORY: As mentioned above. PAST SURGICAL HISTORY: Total knee arthroplasty, carpal tunnel surgery, colonoscopy, EGDs, removal of partial colon for diverticular disease, appendectomy, cholecystectomy, total abdominal hysterectomy with removal of tubes. MEDICATIONS: The patient is on atorvastatin 40 mg p.o. daily, levothyroxine 50 mcg p.o. daily, oxybutynin 5 mg p.o. b.i.d., Zoloft 100 mg p.o. daily, amlodipine 5 mg p.o. daily, Ativan 0.5 mg p.o. t.i.d. p.r.n., Protonix 40 mg p.o. daily, hydrochlorothiazide 12.5 mg 4 times a week, Cozaar 25 mg p.o. daily, baclofen 10 mg b.i.d., Advair Diskus 250/50 inhalation b.i.d., albuterol nebulization as needed, epinephrine p.r.n. allergic reaction, MiraLax 17 g daily p.r.n., Colace 100 mg p.o. daily, Zofran 4 mg p.o. q. 8 hours p.r.n., Fioricet 1 tablet every 6 hours p.r.n. for headaches, Tylenol 650 mg p.o. q. 6 hours p.r.n. FAMILY HISTORY: Significant for: Father has COPD. Mother has diabetes, colon polyps. Sister has stroke, thyroid disorder. SOCIAL HISTORY: . No smoking history. No alcohol, no drug use. REVIEW OF SYMPTOMS: As per HPI. Rest of review of symptoms is negative. PHYSICAL EXAMINATION: GENERAL: The patient is obese, not in acute distress. VITAL SIGNS: Temperature 36.6, pulse 58, respiratory rate 16, blood pressure 140/74, oxygen 100% room air. HEENT: No pallor, no icterus. NECK: No JVD, no neck masses, no carotid bruits. CARDIOVASCULAR: S1, S2 heard, regular rate and rhythm, no murmur, no gallop. RESPIRATORY SYSTEM: Normal AP diameter. No accessory muscle use. No wheezing, no crackles. ABDOMEN: Soft, bowel sounds present. Diffuse tenderness, more in the umbilical region, mild guarding. No rigidity. No distention. CENTRAL NERVOUS SYSTEM: Nonfocal. EXTREMITIES: No edema, no erythema. LABORATORIES: WBC 8.2, hemoglobin 13, hematocrit 37.7, platelets 223. Sodium 140, potassium 4.2, chloride 108, bicarbonate 25, BUN 18, creatinine 1.06, serum glucose 129. Lactate 1.6, calcium 9.2, phosphorus 3.9, magnesium 2.3, total bilirubin 0.4, AST 29, ALT 39, alkaline phosphatase 161. Troponin I less than 0.015. Lipase 173. TSH 6.4. Free T4 1.04. Urinalysis negative. CT of the head, no acute intracranial abnormality. CT of abdomen and pelvis, dilated small bowel in the anterior mid abdomen containing feces, mild transition to less dilated caliber to suggest a partial small-bowel obstruction. Additionally, the antimesenteric wall is contained within the periumbilical hernia, the presence of a cystic fluid within the hernial sac raises concerns for strangulation. Surgical consultation is recommended. Underlying small bowel wall thickening of the dilated loop of small bowel suggest underlying inflammatory change or ischemia, no evidence of perforation at this time. Post-surgical changes of partial sigmoidectomy with the colonic anastomosis of the upper rectum, limited diverticulosis of the rest of the sigmoid colon, possible hepatic steatosis. Chest x-ray, mild cardiomegaly, no acute findings seen. EKG, sinus rhythm with first-degree AV block with a rate of 74, no acute ST changes seen. ASSESSMENT AND PLAN: This is a 72-year-old female who presents with abdominal pain and found to have multiple ventral hernias with possible strangulation of the umbilical hernia. Plan for surgery today. The patient's EKG and chest x-ray is unremarkable. Patient should be at acceptable risk to proceed with surgery. Further management as per surgery. 2. Syncope. The patient had near syncope yesterday with the pain when she was trying to get up and also she says she passed out a couple of months ago in the bathroom. Currently, EKG is okay. We will get an echo when able to. Her troponin on presentation was also negative. Currently asymptomatic. 3. Hypertension. Continue home medication, amlodipine. Holding Cozaar and hydrochlorothiazide, restart after surgery. Place IV hydralazine p.r.n. for now. 4. Hyperlipidemia, holding statin for now, restart after surgery. 5. Hypothyroidism. Continue Synthroid. 6. Anxiety and depression. Ativan p.r.n. and Zoloft. 7. Migraines. Fioricet p.r.n., pain medications p.r.n. 8. Asthma, moderate, persistent, currently stable. Continue home inhalers. 9. History of diastolic dysfunction, not on diuretics. We will monitor for any volume overload. 10. Chronic kidney disease stage III with baseline creatinine around 1.1. Present creatinine is also 1.06. We will monitor the labs. 11. Deep venous thrombosis prophylaxis and disposition, as per general surgery. [facility]
[2018-07-24] MEDS ORDERED: ePHEDrine sulfate 50 MG/ML AMP IV PRN (15:16)
[2018-07-24] MEDS ORDERED: ATROPINE SULFATE 0.1 MG/ML 10ML SYR IV PRN (15:16)
[2018-07-24] MEDS ORDERED: fentaNYL citrate 100 MCG/2 ML VIAL IV PRN (15:16)
[2018-07-24] MEDS ORDERED: HYDROmorphone INJ 1 MG/ML SYRINGE IV PRN (15:16)
[2018-07-24] MEDS ORDERED: PHENYLEPHRINE 100MCG/ML 5ML SYR IV PRN (15:16)
[2018-07-24] MEDS ORDERED: ONDANSETRON INJ 2 MG/ML 2 ML VIAL IV PRN (15:16)
[2018-07-24] MEDS ORDERED: fentaNYL citrate 100 MCG/2 ML VIAL ONE ×3 (15:23→20:33)
[2018-07-24] MEDS ORDERED: MIDAZOLAM HCL 1 MG/ML 2ML VIAL ONE (15:23)
[2018-07-24] MEDS ORDERED: BUPIVACAINE 0.25% 30 ML VIAL ONE (15:29)
[2018-07-24] MEDS ORDERED: BUPIVACAINE LIPOSOME 1.3% 266 MG/20 ML VIAL ONE (15:29)
[2018-07-24] MEDS ORDERED: ROCURONIUM BROMIDE 10 MG/ML 5 ML VIAL ONE ×3 (15:33→18:35)
[2018-07-24] MEDS ORDERED: PROPOFOL IV EMULSION 10 MG/ML 20 ML VIAL IV ONE (15:33)
[2018-07-24] MEDS ORDERED: LIDOCAINE HCL 2% 2 ML VIAL/AMP(20MG/ML) INFIL ONE (15:33)
--- NOTE | 2018-07-24 16:04 | History & Physical Bridge Note ---
Date of Service July 24, 2018 History & Physical Bridge Note I have examined the patient, reviewed the History & Physical and in the interval since the performance of the History & Physical I have noted the following changes of clinical significance: no changes noted
[2018-07-24] MEDS ORDERED: BUPIVACAINE/EPINEPHRINE 0.5% MPF 1:200,000 30 ML VIAL ONE (16:32)
[2018-07-24] MEDS ORDERED: ePHEDrine sulfate 50 MG/ML SYR ONE (16:39)
[2018-07-24] MEDS ORDERED: ACETAMINOPHEN 1000 MG/100 ML IV IV ONE (16:46)
[2018-07-24] MEDS ORDERED: ONDANSETRON INJ 2 MG/ML 2 ML VIAL ONE ×2 (16:53→20:09)
[2018-07-24] MEDS ORDERED: GLYCOPYRROLATE 0.2 MG/ML VIAL ONE (18:18)
[2018-07-24] MEDS ORDERED: NEOSTIGMINE METHYLSULFATE 5 MG/5 ML SYR ONE (18:18)
--- NOTE | 2018-07-24 19:53 | Post Operative Brief Note ---
Immediate Post Op Note v1 Date of Surgery July 24, 2018 Pre & Post Diagnosis Operation Date: 07/23/18 19:00 <No data on this case meets the specified criteria> Operation Date: 07/24/18 08:20 Pre-Op Diagnosis: MULTIPLE ("SPANISH CHEESE") VENTRAL HERNIAS Post-Op Diagnosis: SAME Procedure Operation Date: 07/24/18 08:20 Actual Procedures Laparoscopic repair of multiple ventral hernias with mesh - Karissa Nunez MD (Ventralight ST mesh with Echo PS Positioning System, 20.3 cm x 25.4 cm, Ref: [id number], Lot: [id number]) (SorbaFix Abosrbable Fixation System with Absorbable Fasteners, Ref: [id number], Lot: [id number]) (SorbaFix Abosrbable Fixation System with Absorbable Fasteners, Ref: [id number], Lot: [id number]) Surgeon Karissa Nunez MD Dial Lathe Operator Jake Morrell MD Estimated Blood Loss 5 Findings See Below (multiple "prydeinig cheese" (4 main hernias) in midline) Fluids 1400 mL Specimens None Anesthesia Type General Complications none Disposition Disposition: Recovery Room
--- NOTE | 2018-07-24 19:54 | Operative Report ---
Post Operative Report Pre & Post Diagnosis Operation Date: 07/24/18 08:20 Pre-Op Diagnosis: MULTIPLE "[place] CHEESE" VENTRAL HERNIAS ALONG MIDLINE Post-Op Diagnosis: SAME Procedure Operation Date: 07/24/18 08:20 Actual Procedures Laparoscopic repair of multiple ventral hernias with mesh, extensive lysis of adhesions taking > 1.5 hours - Karissa Nunez MD (Ventralight ST mesh with Echo PS Positioning System, 20.3 cm x 25.4 cm, Ref: [id number], Lot: [id number]) (SorbaFix Abosrbable Fixation System with Absorbable Fasteners, Ref: [id number], Lot: [id number]) (SorbaFix Abosrbable Fixation System with Absorbable Fasteners, Ref: [id number], Lot: [id number]) Surgeon Karissa Nunez MD Bituminous Distributor Operator Jake Morrell MD Estimated Blood Loss 5 Findings See Below Multiple "italian cheese" ventral hernias along midline, significant adhesions Fluids 1400 mL Specimens None Anesthesia Type General Disposition Disposition: Recovery Room Description of Procedure History and Indications: The patient is a 72 year old female with a known history of multiple ventral hernias along the midline who presented with acute worsening of pain associated with a partially intermittently obstructing ventral hernia at the umbilicus. CT scan on admission showed multiple ventral hernias with concern for incarceration at the umbilicus. In review of prior CT scans, imaging appears similar. Discussed with the patient and her family possible urgent operative intervention with primary repair of the concerning hernia with increased risk of recurrence, but would be necessary if there were signs of bowel compromise vs repair with mesh. Pt was re-examined and pain had started to improve, abdominal exam was stable. She remained stable overnight. Again discussed surgical options including primary repair vs repair with mesh, and possible bowel resection. Discussed her very high risk of recurrence regardless of method of repair. Discussed that I recommended against retrorectus repair in this situation, which would be the optimal repair, because she is not optimized, that she would need to lose weight. Risks, benefits, goals, complications, post-op expectations, limitations, and alternatives were discussed with the patient and her family. Risks include, but are not limited to, pain, scarring, bleeding and associated problems, infection, heart attack, breathing problems including required intubation post-operatively, stroke, blood clots including deep vein thrombosis and pulmonary embolism, injury to surrounding tissues or organs, , need for additional procedures, recurrent hernia, injury to bowel, mesh infection and need for mesh explantation.. All questions were answered to apparent satisfaction and the patient freely signed consent. Description of Procedure: The patient was brought to the operating room and placed in the supine position. Perioperative antibiotics were administered and SCDs were on and working. General anesthesia was induced. The patient was prepped and draped in the usual sterile fashion. A timeout was held confirming the correct patient, procedure, and necessary equipment. Local anesthetic was injected and an incision was made in the left upper quadrant. Dissection was carried down until the level of the fascia. The fascia was elevated and incised. Entry into the peritoneum was confirmed visually. A 12 mm trocar was inserted under direct visualization. The abdomen was insufflated with carbon dioxide. The patient tolerated insufflation well. The laparoscope was inserted and the abdomen inspected. There were extensive adhesions to the abdominal wall including adhesions of multiple loops of small bowel. Two 5 mm trocars were inserted in the left abdomen under direct visualization. A significant amount of time, > 1.5 hours, was required to carefully lyse adhesions. Adhesions were carefully taken down with endoscopic scissors attached to cautery. During lysis of adhesions the multiple hernias were discovered, and reduced. There were four hernias along the midline, down to the umbilicus. The ventral hernia at the umbilicus contained bowel and the remainder of the hernias contained fat and all of the hernias had significant adhesions. Prior to placing mesh the bowel was inspected, and there were no injuries noted. There was no significant bowel dilation or bowel compromise so it was felt that it was safe to use mesh for the hernia repair. Two 5 mm port was placed in the right mid abdomen to assist with this process and to help place the mesh. The 12 mm trocar was upsized to a 15 mm trocar. A 20.3 cm x 25.[address] mesh with Echo PS Positioning System was inserted through the 15 mm trocar into the peritoneal cavity using the introducer tool. The mesh was unrolled. The midline midpoint of the area containing the hernias was identified and measured out. A Austin-Madie was inserted through this point and the blue retrieval loop in the middle of the mesh was pulled up through the abdominal wall. The inflation tube was cut along the dashed line. The inflation device was attached to a syringe and the assembly was then connected to the inflation tube channel. The device was then inflated with three pumps of the syringe. The area was inspected to ensure that the mesh was completely unrolled, was flat against the fascia, centered, and the nonadherent coated side of the mesh was facing the bowel. There was at least 4-5 cm of overlap/mesh extending past the defects on all sides. The mesh was tacked using a Sorbafix absorbable tacking device to place absorbable tacks around the outer edge of the mesh circumferentially, approximately 1 cm from each other. The mesh was again inspected, was flat against the posterior aspect of the fascia, there were no large gaps to minimize hernia recurrence, and there was no significant tension. The positioning system was then deflated and removed through the 15 mm trocar. The system was inspected to confirm that all pieces, including the ballon, mesh connectors (total of 4), and the inflation tube were fully intact and removed from the peritoneal cavity. Throughout the operation care was taken to avoid injury to the epigastric vessels. The abdominal cavity was inspected and the hernia repair appeared satisfactory. The abdomen was inspected for hemostasis. The trocars were removed under direct visualization and the laparoscope was removed. No bleeding was noted. The abdomen was allowed to collapse. The trocar sites were injected with additional local anesthetic. The fascia at the 15 mm right upper quadrant incision was closed with [id number] 0 Vicryl sutures. All incisions were then closed with subcuticular 4-0 Monocryl suture. All instrument and sponge counts were reported as correct. The incisions were covered with Dermabond. The patient was extubated and transferred to the recovery room in stable condition. I attest to the content of the Intraoperative Record and any orders documented therein. Any exceptions are noted below.
--- NOTE | 2018-07-24 20:30 | Surgery Progress Note ---
Date of Service July 24, 2018 Assessment & Plan (1) Ventral hernia: Pt is a 72 yo female with known multiple ventral hernias. She presented with acute onset of worsening abdominal pain. CT scan showed multiple ventral hernias with concern for incarceration at the umbilicus. In review of prior CT scans, imaging appears similar. Discussed with the patient and her family possible urgent operative intervention with primary repair of the concerning hernia with increased risk of recurrence, but would be necessary if there were signs of bowel compromise vs repair with mesh. Pt was re-examined and pain had started to improve, abdominal exam was stable. She remained stable overnight. Again discussed surgical options including primary repair vs repair with mesh, and possible bowel resection. Discussed her very high risk of recurrence regardless of method of repair. Discussed that I recommended against retrorectus repair in this situation, which would be the optimal repair, because she is not optimized, that she would need to lose weight. - OR today for laparoscopic, possible open, ventral hernia repair with possible mesh, possible bowel resection. Consent obtained (see below) - Consulted Internal Medicine given multiple episodes of syncope/near syncope, had ECHO, awaiting further recommendations, they cleared the patient for OR - NPO, IVF - Abx cardiac catheterization technologist - Analgesia PRN - SCDs - IS Risks, benefits, goals, complications, post-op expectations, limitations, and alternatives were discussed with the patient and her family. Risks include, but are not limited to, pain, scarring, bleeding and associated problems, infection, heart attack, breathing problems including required int ubation post-operatively, stroke, blood clots including deep vein thrombosis and pulmonary embolism, injury to surrounding tissues or organs, , need for additional procedures, recurrent hernia, injury to bowel, mesh infection and need for mesh explantation.. All questions were answered to apparent satisfaction and the patient freely signed consent. Subjective Continues to have intermittent abdominal pain Denies nausea Physical Exam Constitutional: well developed and well nourished; no acute distress Respiratory: normal respiratory effort Cardiovascular: Rate/Rhythm: regular rate and regular rhythm Gastrointestinal (Abdomen): soft, protuberant, palpable fascial defect at umbilicus, periumbilical tenderness Results & Data Vital Signs (Past 12 Hours) Vital Signs Temp Pulse Pulse Pulse Resp BP BP 07/24/18 20:06 71 07/24/18 20:05 71 150/66 H 07/24/18 20:01 68 07/24/18 20:00 71 150/74 H 07/24/18 19:58 69 07/24/18 19:57 72 148/71 H 07/24/18 15:45 36.8 C 70 16 135/78 07/24/18 15:07 36.6 C 58 L 20 142/83 H 07/24/18 09:57 37.0 C 72 20 148/71 H Pulse Ox 07/24/18 20:06 100 07/24/18 20:05 100 07/24/18 20:01 99 07/24/18 20:00 100 07/24/18 19:58 100 07/24/18 19:57 100 07/24/18 15:45 98 07/24/18 15:07 98 07/24/18 09:57 100
[2018-07-24] MEDS ORDERED: PROMETHAZINE HCL 12.5 MG in SODIUM CHLORIDE 0.9% 50 ML IV PRN (20:38)
[2018-07-24] MEDS ORDERED: HYDROmorphone INJ 1 MG/ML SYRINGE ONE (20:58)
--- NOTE | 2018-07-24 21:14 | Anesthesiology Progress Note ---
Date of Service July 24, 2018 Anesthesia Post Procedure Vital Signs Vital Signs: Temp Pulse Pulse Pulse Resp BP BP 07/24/18 21:10 68 143/64 H 07/24/18 21:06 69 07/24/18 21:05 67 145/61 H 07/24/18 21:01 62 07/24/18 21:00 72 145/74 H 07/24/18 20:56 67 07/24/18 20:55 66 151/63 H 07/24/18 20:51 67 07/24/18 20:50 65 156/62 H 07/24/18 20:46 64 07/24/18 20:45 63 152/63 H 07/24/18 20:41 65 07/24/18 20:40 66 157/64 H 07/24/18 20:36 66 07/24/18 20:35 65 158/68 H 07/24/18 20:31 74 07/24/18 20:30 78 135/70 07/24/18 20:26 68 07/24/18 20:25 69 146/67 H 07/24/18 20:21 69 07/24/18 20:20 68 146/68 H 07/24/18 20:19 36.7 C 71 20 146/68 H 07/24/18 20:16 66 07/24/18 20:15 71 147/66 H 07/24/18 20:11 84 161/77 H 07/24/18 20:10 84 07/24/18 20:06 71 07/24/18 20:05 71 150/66 H 07/24/18 20:01 68 07/24/18 20:00 71 150/74 H 07/24/18 19:58 69 07/24/18 19:57 72 148/71 H 07/24/18 15:45 36.8 C 70 16 135/78 07/24/18 15:07 36.6 C 58 L 20 142/83 H 07/24/18 09:57 37.0 C 72 20 148/71 H 07/24/18 07:07 36.6 C 58 L 16 140/74 07/23/18 23:50 36.6 C 70 18 133/77 07/23/18 21:53 36.8 C 74 18 172/74 H 07/23/18 21:26 77 20 168/96 H Pulse Ox 07/24/18 21:10 99 07/24/18 21:06 99 07/24/18 21:05 99 07/24/18 21:01 99 07/24/18 21:00 99 07/24/18 20:56 99 07/24/18 20:55 99 07/24/18 20:51 99 07/24/18 20:50 99 07/24/18 20:46 99 07/24/18 20:45 99 07/24/18 20:41 98 07/24/18 20:40 98 07/24/18 20:36 98 07/24/18 20:35 98 07/24/18 20:31 99 07/24/18 20:30 98 07/24/18 20:26 100 07/24/18 20:25 99 07/24/18 20:21 100 07/24/18 20:20 100 07/24/18 20:19 100 07/24/18 20:16 100 07/24/18 20:15 100 07/24/18 20:11 98 07/24/18 20:10 99 07/24/18 20:06 100 07/24/18 20:05 100 07/24/18 20:01 99 07/24/18 20:00 100 07/24/18 19:58 100 07/24/18 19:57 100 07/24/18 15:45 98 07/24/18 15:07 98 07/24/18 09:57 100 07/24/18 07:07 100 07/23/18 23:50 98 07/23/18 21:53 100 07/23/18 21:26 99 Pain Intensity Abdomen: Pain Intensity: 10 Notes Mental Status: alert / awake / arousable and participated in evaluation Patient Amnestic to Procedure: Yes Nausea / Vomiting: improving with treatment Pain: improving with treatment Airway Patency, RR, SpO2: stable & adequate BP & HR: stable & adequate Hydration State: stable & adequate Anesthetic Complications: no major complications apparent and Pt Satisfied with anesthetic care
[2018-07-24] MEDS: ACETAMINOPHEN 1,000 MG/100 ML VIAL IV SCH (21:50)
[2018-07-24] MEDS: INSULIN ASPART 100 UNITS/ML 3 ML PEN SC SCH ×2 (22:04→22:06)
[2018-07-25] MEDS: LACTATED RINGER'S 1,000 ML IV SCH ×3 (00:20→23:53)
[2018-07-25] MEDS: ONDANSETRON INJ 2 MG/ML 2 ML VIAL IV PRN ×2 (00:54→10:50)
[2018-07-25] MEDS: INSULIN ASPART 100 UNITS/ML 3 ML PEN SC SCH ×4 (00:59→19:59)
[2018-07-25] MEDS: LEVOTHYROXINE SODIUM 50 MCG TABLET PO SCH (05:34)
[2018-07-25] MEDS: ACETAMINOPHEN 1,000 MG/100 ML VIAL IV SCH ×3 (05:34→23:53)
[2018-07-25 05:42] LABS: INR 1.1 (0.9-1.1); Prothrombin Time 11.1 Seconds (9.0-12.0)
[2018-07-25 06:39] LABS: Estimated Average Glucose 143 mg/dl; Hemoglobin A1C 6.6 % (4.5-5.6)
[2018-07-25 08:58] LABS: Basophils # (auto) 0.02 K/uL (0-0.2); Basophils % (auto) 0.2 %; Hematocrit (blood only) 32.7 % (37-47); Immature Granulocytes # (auto) 0.01 K/uL (0.00-0.02); Immature Granulocytes % (auto) 0.1 %; Lymphocytes # (auto) 0.64 K/uL (1.2-3.4); Lymphocytes % (auto) 6.4 %; Mean Corpuscular Volume 88.1 fL (80-100); Mean Platelet Volume 10.1 fL (7.4-10.4); Monocytes # (auto) 0.62 K/uL (0.11-0.59); Monocytes % (auto) 6.2 %; Neutrophils # (auto) 8.71 K/uL (1.4-6.5); Neutrophils % (auto) 87.1 %; Platelet Count 174 K/uL (130-400); RDW Coefficient of Variation 13.8 % (11.5-14.5); Red Blood Count 3.71 M/uL (4.2-5.4)
[2018-07-25 09:00] LABS: Mean Corpuscular Hgb Conc 33.6 g/dL (32-36)
[2018-07-25 09:10] LABS: BUN Creatinine Ratio 13.8 (10-20); Calcium 8.7 mg/dl (8.5-10.1); Creatinine Clr Calc Pharmacy 66.6 ml/min; Est GFR (African American) 76.1; Est GFR (Non-African American) 65.7
[2018-07-25] MEDS ORDERED: HYDROmorphone INJ 0.5 MG/0.5 ML SYR IV PRN (09:49)
[2018-07-25] MEDS ORDERED: HYDROmorphone INJ 1 MG/ML SYRINGE IV PRN (09:49)
[2018-07-25] MEDS: FLUTICASONE/SALMETEROL 250/50 (ADVAIR) 14 PUFF/1 INHALER INH SCH ×2 (10:02→20:35)
[2018-07-25] MEDS: ENOXAPARIN INJ 60 MG/0.6 ML SYR SQ SCH (10:03)
[2018-07-25] MEDS: SERTRALINE HCL 100 MG TABLET PO SCH (10:04)
[2018-07-25] MEDS: PANTOprazole 40 MG TAB PO SCH (10:04)
[2018-07-25] MEDS: DOCUSATE SODIUM 100 MG CAP PO SCH ×2 (10:05→20:35)
[2018-07-25] MEDS: AMLODIPINE BESYLATE 5 MG TAB PO SCH (10:05)
[2018-07-25] MEDS: TRAMADOL HCL 50 MG TABLET PO PRN (10:50)
[2018-07-25] MEDS ORDERED: OXYCODONE HCL IR 5 MG TAB (IMMEDIATE RELEASE) PO STA (12:53)
[2018-07-25] MEDS ORDERED: ONDANSETRON INJ 2 MG/ML 2 ML VIAL IV STA (12:54)
[2018-07-25] MEDS ORDERED: KETOROLAC TROMETHAMINE 10 MG TABLET PO PRN (15:14)
--- NOTE | 2018-07-25 16:34 | Hospitalist Progress Note ---
Date of Service July 25, 2018 Assessment & Plan (1) Ventral hernia: (2) SBO (small bowel obstruction): Present on admission with abdominal pain CT abd/pelvis showed Dilated small bowel in the anterior mid abdomen containing feces. A mild transition to less dilated caliber to suggest a partial small bowel obstruction. Additionally, the antimesenteric wall is contained within the periumbilical hernia (Andres-type hernia). The presence of associated fluid within the hernia sac raises concern for strangulation. S/P day#1 Laparoscopic repair of multiple ventral hernias with mesh performed by Dr. Enrique MD No post op complication Continue pain control Incentive spirometry Monitor H/H Continue clear liquid diet Clinically improves Syncope Possible due to Vasovagal CT head showed no acute intracranial finding ECHO showed no LV wall motion abnormalities with EF greater 70 Clinically stable Hypertension. BP started to elevate, possible related to pain Continue amlodipine. Will resume Cozaar Continue to hold hydrochlorothiazide Hyperlipidemia, Will resume statin Hypothyroidism. Continue Synthroid. Anxiety/depression. Continue Zoloft and Ativan prn Migraines. On Fioricet p.r.n. Asthma, D any symptoms Continue Neb treatment Stable Diastolic dysfunction, We will monitor for volume overload. Will D/C IVF Stable Chronic kidney disease stage III Creatinine stable DVT px as per ortho Code Status Full code Disposition As per Ortho (3) Morbid obesity with BMI of 50.0-59.9, adult: Subjective Pt was seen and examined Lying in bed with no distress Pt said that she is having pain She said that the pain medication helps Denies any chest pain, palpitation, dizziness and SOB Physical Exam Physical Exam: General- No acute distress Head- atraumatic Eyes- PERRL, EOMI, ENT- oropharynx clear Neck- supple, no JVD Lungs- clear to auscultation Heart- regular rhythm; no murmur Abdomen- normal bowel sounds, soft, +tender Extremities- no calf tenderness Neuro- alert, oriented x 3; PERRL, EOMI; no facial palsy; no dysarthria Skin- warm & dry Results & Data Vital Signs (Past 12 Hours) Vital Signs Temp Pulse Pulse Resp BP Pulse Ox 07/25/18 15:08 36.8 C 80 18 147/79 H 99 07/25/18 12:00 36.8 C 79 18 148/56 H 99 04/24/19 08:00 37.1 C 74 20 142/60 H 96
--- NOTE | 2018-07-25 16:46 | Surgery Progress Note ---
Date of Service July 25, 2018 Assessment & Plan (1) Ventral hernia: POD # 1 s/p laparoscopic ventral hernia repair with mesh -vitals stable, afebrile - moderate to severe post op pain, not well controlled - nausea with Percocet and Morphine - no return of bowel function yet - has not ambulated much because of the pain Plan: Will stop Percocet and try Tramadol with breakthrough Dilaudid prn pain Will advance to clear liquids decrease fluids to 75 mls/hr Add colace BID Will also try abdominal binder for support encouraged incentive spirometry Encouraged ambulation today Lovenox 60 mg daily SQ (weight based) and SCDs for DVT prophylaxis repeat am labs continue medical management Dr. Nunez has seen and examined pt, agrees with above Supervising Physician Co-Signing Physician Notes I have seen and evaluated the patient and reviewed the medical record. I agree with the documentation as provided in this note by Bonnie Crane PA-C. - Pt with reports of pain and percocet made her nauseated yesterday and morphine has caused nausea in the past. Will try Tramadol or Toradol for pain - Encouraged pt to ambulate and use IS; educated pt on importance of pulmonary hygiene to decrease risk of atelectasis and pneumonia - Consult PT/OT - No lifting/pulling/pushing > 10 pounds - Abdominal binder - Appreciate hospitalist assistance with management and syncopal work-up. Subjective having a lot of pain Percocet made her feel nauseated, same with Morphine no vomiting not passing any flatus feeling mildly short of breath, unable to take a deep breathe because of the pain Physical Exam Constitutional: WD/WN, vitals as above + acute distress (mild, looks in pain with movement) and + morbidly obese; not ill appearing Respiratory: Auscultation: + diminished lung sounds; no crackles, no rales, no rhonchi and no wheezes Cardiovascular: RRR, no murmur, no edema Gastrointestinal (Abdomen): Inspection/Auscultation: abdomen not distended Percussion/Palpation: + abdomen tender (generalized, specifically more at incision sites), + guarding (mild in upper abdomen) and abdomen soft; abdomen not rigid Skin: no rashes, warm and dry + incision (clean/dry/intact dermabond present) Psychiatric: A+Ox3, euthymic affect Results & Data Vital Signs (Past 12 Hours) Vital Signs Temp Pulse Pulse Resp BP Pulse Ox 07/25/18 15:08 36.8 C 80 18 147/79 H 99 07/25/18 12:00 36.8 C 79 18 148/56 H 99 07/25/18 08:00 37.1 C 74 20 142/60 H 96
[2018-07-25] MEDS: OXYCODONE HCL IR 5 MG TAB (IMMEDIATE RELEASE) PO PRN (20:36)
[2018-07-26] MEDS ORDERED: Nursing to Pharmacy Communication ONE ×2 (00:25→00:54)
[2018-07-26] MEDS: LEVOTHYROXINE SODIUM 50 MCG TABLET PO SCH (05:45)
[2018-07-26] MEDS: OXYCODONE HCL IR 5 MG TAB (IMMEDIATE RELEASE) PO PRN ×2 (05:45→13:19)
[2018-07-26] MEDS ORDERED: INSULIN ASPART 100 UNITS/ML 3 ML PEN SC SCH (06:00)
[2018-07-26 06:43] LABS: Basophils # (auto) 0.02 K/uL (0-0.2); Basophils % (auto) 0.3 %; Eosinophils # (auto) 0.05 K/uL (0-0.5); Eosinophils % (auto) 0.7 %; Hematocrit (blood only) 30.7 % (37-47); Hemoglobin 10.3 g/dL (12.0-16.0); Immature Granulocytes # (auto) 0.01 K/uL (0.00-0.02); Immature Granulocytes % (auto) 0.1 %; Lymphocytes # (auto) 1.16 K/uL (1.2-3.4); Lymphocytes % (auto) 16.6 %; Mean Corpuscular Hgb Conc 33.6 g/dL (32-36); Mean Corpuscular Volume 89.5 fL (80-100); Mean Platelet Volume 9.8 fL (7.4-10.4); Monocytes % (auto) 8.6 %; Neutrophils # (auto) 5.14 K/uL (1.4-6.5); Neutrophils % (auto) 73.7 %; Platelet Count 156 K/uL (130-400); RDW Coefficient of Variation 14.4 % (11.5-14.5); RDW Standard Deviation 47.6 fL (36.4-46.3); Red Blood Count 3.43 M/uL (4.2-5.4); White Blood Count 6.98 K/uL (4.8-10.8)
[2018-07-26 07:10] LABS: BUN Creatinine Ratio 11.9 (10-20); Calcium 8.1 mg/dl (8.5-10.1); Creatinine Clr Calc Pharmacy 65.9 ml/min; Est GFR (African American) 75.1; Est GFR (Non-African American) 64.8; Potassium 3.6 mmol/L (3.5-5.1)
[2018-07-26] MEDS: LACTATED RINGER'S 1,000 ML IV SCH ×2 (07:48→21:31)
[2018-07-26] MEDS: ACETAMINOPHEN 1,000 MG/100 ML VIAL IV SCH ×2 (07:49→17:36)
[2018-07-26] MEDS: PANTOprazole 40 MG TAB PO SCH (08:51)
[2018-07-26] MEDS: FLUTICASONE/SALMETEROL 250/50 (ADVAIR) 14 PUFF/1 INHALER INH SCH ×2 (08:51→21:27)
[2018-07-26] MEDS: DOCUSATE SODIUM 100 MG CAP PO SCH ×3 (08:51→21:39)
[2018-07-26] MEDS: SERTRALINE HCL 100 MG TABLET PO SCH (08:51)
[2018-07-26] MEDS: AMLODIPINE BESYLATE 5 MG TAB PO SCH (08:51)
[2018-07-26] MEDS: ENOXAPARIN INJ 60 MG/0.6 ML SYR SQ SCH (08:51)
[2018-07-26] MEDS: INSULIN ASPART 100 UNITS/ML 3 ML PEN SC SCH ×4 (08:52→21:04)
--- NOTE | 2018-07-26 10:17 | Surgery Progress Note ---
Date of Service July 26, 2018 Assessment & Plan (1) Ventral hernia: POD # 2 s/p laparoscopic ventral hernia repair with mesh - vitals stable, afebrile - moderate post op pain, better controlled today - no return of bowel function yet Plan: Continue Oxycodone/Tramadol prn pain Continue clear liquids, await return of bowel function Continue fluids to 75 mls/hr Continue colace BID Abdominal binder for support encouraged incentive spirometry Encouraged ambulation today Lovenox 60 mg daily SQ (weight based) and SCDs for DVT prophylaxis repeat am labs continue medical management PT/OT Dr. Nunez has seen and examined pt, agrees with above Supervising Physician Co-Signing Physician Notes I have seen and evaluated the patient and reviewed the medical record. I agree with the documentation as provided in this note by Bonnie Crane PA-C. Subjective pain is better today but still present was able to take the Oxydone this morning without nausea not passing gas or any bowel movement no nausea or vomiting tolerating clears so far, appetite is low ambulate a little yesterday, planning to walk more today abdominal binder helping Physical Exam Constitutional: WD/WN, vitals as above + morbidly obese; no acute distress and not ill appearing Respiratory: normal respiratory effort; no respiratory distress Gastrointestinal (Abdomen): Inspection/Auscultation: abdomen normal to inspection; abdomen not distended Percussion/Palpation: + abdomen tender and abdomen soft; no guarding and abdomen not rigid Skin: no rashes, warm and dry + incision (clean/dry/intact, dermabond present, mild ecchymosis) Psychiatric: A+Ox3, euthymic affect Results & Data Vital Signs (Past 12 Hours) Vital Signs Temp Pulse Resp BP Pulse Ox 07/26/18 07:35 36.8 C 69 16 148/77 H 94 07/25/18 22:56 37.3 C 84 16 154/73 H 95 Laboratory Results 07/26/18 07/26/18 07/26/18 Range/Units 08:09 06:32 06:32 WBC 6.98 (4.8-10.8) K/uL RBC 3.43 L (4.2-5.4) M/uL Hgb 10.3 L (12.0-16.0) g/dL Hct 30.7 L (37-47) % MCV 89.5 (80-100) fL MCH 30.0 (25-34) pg MCHC 33.6 (32-36) g/dL RDW Std Deviation 47.6 H (36.4-46.3) fL RDW Coeff of Jin 14.4 (11.5-14.5) % Plt Count 156 (130-400) K/uL MPV 9.8 (7.4-10.4) fL Immature Gran % (Auto) 0.1 % Neut % (Auto) 73.7 % Lymph % (Auto) 16.6 % [place] % (Auto) 8.6 % Eos % (Auto) 0.7 % Baso % (Auto) 0.3 % Immature Gran # (Auto) 0.01 (0.00-0.02) K/uL Neut # (Auto) 5.14 (1.4-6.5) K/uL Lymph # (Auto) 1.16 L (1.2-3.4) K/uL [place] # (Auto) 0.60 H (0.11-0.59) K/uL Eos # (Auto) 0.05 (0-0.5) K/uL Baso # (Auto) 0.02 (0-0.2) K/uL Sodium 139 (136-145) mmol/L Potassium 3.6 (3.5-5.1) mmol/L Chloride 108 H (98-107) mmol/L Carbon Dioxide 27 (21-32) mmol/L Anion Gap 4.0 (3-11) BUN 11 (7-18) mg/dl Creatinine 0.90 (0.6-1.2) mg/dl Est Cr Clr Drug Dosing 65.9 ml/min Est GFR ( Amer) 75.1 Est GFR (Non-Af Amer) 64.8 BUN/Creatinine Ratio 11.9 (10-20) Glucose 121 H (70-99) mg/dl POC Glucose 139 H (70-99) Calcium 8.1 L (8.5-10.1) mg/dl 07/25/18 07/25/18 07/25/18 Range/Units 20:11 17:31 11:40 WBC (4.8-10.8) K/uL RBC (4.2-5.4) M/uL Hgb (12.0-16.0) g/dL Hct (37-47) % MCV (80-100) fL MCH (25-34) pg MCHC (32-36) g/dL RDW Std Deviation (36.4-46.3) fL RDW Coeff of Jin (11.5-14.5) % Plt Count (130-400) K/uL MPV (7.4-10.4) fL Immature Gran % (Auto) % Neut % (Auto) % Lymph % (Auto) % [place] % (Auto) % Eos % (Auto) % Baso % (Auto) % Immature Gran # (Auto) (0.00-0.02) K/uL Neut # (Auto) (1.4-6.5) K/uL Lymph # (Auto) (1.2-3.4) K/uL [place] # (Auto) (0.11-0.59) K/uL Eos # (Auto) (0-0.5) K/uL Baso # (Auto) (0-0.2) K/uL Sodium (136-145) mmol/L Potassium (3.5-5.1) mmol/L Chloride (98-107) mmol/L Carbon Dioxide (21-32) mmol/L Anion Gap (3-11) BUN (7-18) mg/dl Creatinine (0.6-1.2) mg/dl Est Cr Clr Drug Dosing ml/min Est GFR ( Amer) Est GFR (Non-Af Amer) BUN/Creatinine Ratio (10-20) Glucose (70-99) mg/dl POC Glucose 177 H 121 H 155 H (70-99) Calcium (8.5-10.1) mg/dl
--- NOTE | 2018-07-26 19:25 | Hospitalist Progress Note ---
Date of Service July 26, 2018 Assessment & Plan (1) Ventral hernia: (2) SBO (small bowel obstruction): Present on admission with abdominal pain CT abd/pelvis showed Dilated small bowel in the anterior mid abdomen containing feces. A mild transition to less dilated caliber to suggest a partial small bowel obstruction. Additionally, the antimesenteric wall is contained within the periumbilical hernia (Andres-type hernia). The presence of associated fluid within the hernia sac raises concern for strangulation. S/P day#2 Laparoscopic repair of multiple ventral hernias with mesh performed by Dr. Enrique MD No post op complication Continue pain control Incentive spirometry Monitor H/H Continue clear liquid diet Clinically improves Syncope Possible due to Vasovagal CT head showed no acute intracranial finding ECHO showed no LV wall motion abnormalities with EF greater 70 Clinically stable Hypertension. BP started to elevate, possible related to pain Continue amlodipine. Will resume Cozaar Continue to hold hydrochlorothiazide Hyperlipidemia, Will resume statin Hypothyroidism. Continue Synthroid. Anxiety/depression. Continue Zoloft and Ativan prn Migraines. On Fioricet p.r.n. Asthma, D any symptoms Continue Neb treatment Stable Diastolic dysfunction, We will monitor for volume overload. Will D/C IVF Stable Chronic kidney disease stage III Creatinine stable DVT px as per ortho Code Status Full code Disposition As per Ortho (3) Morbid obesity with BMI of 50.0-59.9, adult: Subjective Pt was seen and examined Lying in bed with no distress Pt said that her pain is much better She still does not have a BM yet She said that she can here gurgling in her abdomen Denies any chest pain, palpitation and SOB Physical Exam Physical Exam: General- No acute distress Head- atraumatic Eyes- PERRL, EOMI, ENT- oropharynx clear Neck- supple, no JVD Lungs- clear to auscultation Heart- regular rhythm; no murmur Abdomen- normal bowel sounds, soft, +tender Extremities- no calf tenderness Neuro- alert, oriented x 3; PERRL, EOMI; no facial palsy; no dysarthria Skin- warm & dry Results & Data Vital Signs (Past 12 Hours) Vital Signs Temp Pulse Resp BP Pulse Ox 07/26/18 15:25 37.3 C 72 17 139/68 98 07/26/18 07:35 36.8 C 69 16 148/77 H 94
[2018-07-27] MEDS: ACETAMINOPHEN 1,000 MG/100 ML VIAL IV SCH ×3 (00:27→17:46)
[2018-07-27] MEDS: LEVOTHYROXINE SODIUM 50 MCG TABLET PO SCH (06:13)
[2018-07-27 06:24] LABS: Basophils # (auto) 0.04 K/uL (0-0.2); Basophils % (auto) 0.6 %; Eosinophils # (auto) 0.09 K/uL (0-0.5); Eosinophils % (auto) 1.4 %; Hematocrit (blood only) 29.2 % (37-47); Hemoglobin 9.9 g/dL (12.0-16.0); Immature Granulocytes # (auto) 0.02 K/uL (0.00-0.02); Immature Granulocytes % (auto) 0.3 %; Lymphocytes # (auto) 1.46 K/uL (1.2-3.4); Lymphocytes % (auto) 23.3 %; Mean Corpuscular Hgb Conc 33.9 g/dL (32-36); Mean Corpuscular Volume 90.4 fL (80-100); Mean Platelet Volume 9.7 fL (7.4-10.4); Monocytes # (auto) 0.57 K/uL (0.11-0.59); Monocytes % (auto) 9.1 %; Neutrophils # (auto) 4.08 K/uL (1.4-6.5); Neutrophils % (auto) 65.3 %; Platelet Count 159 K/uL (130-400); RDW Coefficient of Variation 14.3 % (11.5-14.5); RDW Standard Deviation 47.4 fL (36.4-46.3); Red Blood Count 3.23 M/uL (4.2-5.4); White Blood Count 6.26 K/uL (4.8-10.8)
[2018-07-27 06:57] LABS: BUN Creatinine Ratio 11.5 (10-20); Calcium 8.5 mg/dl (8.5-10.1); Creatinine Clr Calc Pharmacy 73.2 ml/min; Est GFR (African American) 85.3; Est GFR (Non-African American) 73.6; Potassium 3.6 mmol/L (3.5-5.1)
[2018-07-27] MEDS: PANTOprazole 40 MG TAB PO SCH (08:56)
[2018-07-27] MEDS: AMLODIPINE BESYLATE 5 MG TAB PO SCH (08:56)
[2018-07-27] MEDS: ENOXAPARIN INJ 60 MG/0.6 ML SYR SQ SCH (08:56)
[2018-07-27] MEDS: SERTRALINE HCL 100 MG TABLET PO SCH (08:56)
[2018-07-27] MEDS: DOCUSATE SODIUM 100 MG CAP PO SCH (08:56)
[2018-07-27] MEDS: FLUTICASONE/SALMETEROL 250/50 (ADVAIR) 14 PUFF/1 INHALER INH SCH ×2 (08:57→21:21)
[2018-07-27] MEDS: INSULIN ASPART 100 UNITS/ML 3 ML PEN SC SCH ×4 (08:58→21:36)
--- NOTE | 2018-07-27 10:08 | Surgery Progress Note ---
Date of Service July 27, 2018 Assessment & Plan (1) Ventral hernia: POD # 3 s/p laparoscopic ventral hernia repair with mesh Plan: Continue Oxycodone/Tramadol prn pain Continue clear liquids, await return of bowel function D/c IVF Senokot-S BID Abdominal binder for support Encouraged incentive spirometry Encouraged ambulation minimum 4-6 times in hallway per day Lovenox 60 mg daily SQ (weight based) and SCDs for DVT prophylaxis Strict weight limit of lifting/pushing/pulling of 10 pounds; should wear abdominal binder whenever out of bed PT/OT Appreciate Hospitalist assistance with management including syncope workup and multiple comorbidities Subjective Patient states pain is better controlled. Tolerating clears but still no flatus or BM. Has ambulated in the halls. Physical Exam Constitutional: well developed and well nourished; no acute distress Respiratory: normal respiratory effort Cardiovascular: Rate/Rhythm: regular rate and regular rhythm Gastrointestinal (Abdomen): soft, non-distended, appropriately tender, incisions clean/dry/intact with overlying Dermabond, no erythema Results & Data Vital Signs (Past 12 Hours) Vital Signs Temp Pulse Resp BP Pulse Ox 07/27/18 07:12 36.4 C L 74 18 147/68 H 96 07/26/18 23:01 36.8 C 70 18 147/76 H 94 Laboratory Results 07/27/18 07/27/18 07/27/18 Range/Units 08:21 07:03 06:05 WBC (4.8-10.8) K/uL RBC (4.2-5.4) M/uL Hgb (12.0-16.0) g/dL Hct (37-47) % MCV (80-100) fL MCH (25-34) pg MCHC (32-36) g/dL RDW Std Deviation (36.4-46.3) fL RDW Coeff of Jin (11.5-14.5) % Plt Count (130-400) K/uL MPV (7.4-10.4) fL Immature Gran % (Auto) % Neut % (Auto) % Lymph % (Auto) % [place] % (Auto) % Eos % (Auto) % Baso % (Auto) % Immature Gran # (Auto) (0.00-0.02) K/uL Neut # (Auto) (1.4-6.5) K/uL Lymph # (Auto) (1.2-3.4) K/uL [place] # (Auto) (0.11-0.59) K/uL Eos # (Auto) (0-0.5) K/uL Baso # (Auto) (0-0.2) K/uL Sodium 142 (136-145) mmol/L Potassium 3.6 (3.5-5.1) mmol/L Chloride 110 H (98-107) mmol/L Carbon Dioxide 27 (21-32) mmol/L Anion Gap 5.0 (3-11) BUN 9 (7-18) mg/dl Creatinine 0.81 (0.6-1.2) mg/dl Est Cr Clr Drug Dosing 73.2 ml/min Est GFR ( Amer) 85.3 Est GFR (Non-Af Amer) 73.6 BUN/Creatinine Ratio 11.5 (10-20) Glucose 101 H (70-99) mg/dl POC Glucose 116 H 102 H (70-99) Calcium 8.5 (8.5-10.1) mg/dl 07/27/18 07/26/18 07/26/18 Range/Units 06:05 20:36 17:20 WBC 6.26 (4.8-10.8) K/uL RBC 3.23 L (4.2-5.4) M/uL Hgb 9.9 L (12.0-16.0) g/dL Hct 29.2 L (37-47) % MCV 90.4 (80-100) fL MCH 30.7 (25-34) pg MCHC 33.9 (32-36) g/dL RDW Std Deviation 47.4 H (36.4-46.3) fL RDW Coeff of Jin 14.3 (11.5-14.5) % Plt Count 159 (130-400) K/uL MPV 9.7 (7.4-10.4) fL Immature Gran % (Auto) 0.3 % Neut % (Auto) 65.3 % Lymph % (Auto) 23.3 % [place] % (Auto) 9.1 % Eos % (Auto) 1.4 % Baso % (Auto) 0.6 % Immature Gran # (Auto) 0.02 (0.00-0.02) K/uL Neut # (Auto) 4.08 (1.4-6.5) K/uL Lymph # (Auto) 1.46 (1.2-3.4) K/uL [place] # (Auto) 0.57 (0.11-0.59) K/uL Eos # (Auto) 0.09 (0-0.5) K/uL Baso # (Auto) 0.04 (0-0.2) K/uL Sodium (136-145) mmol/L Potassium (3.5-5.1) mmol/L Chloride (98-107) mmol/L Carbon Dioxide (21-32) mmol/L Anion Gap (3-11) BUN (7-18) mg/dl Creatinine (0.6-1.2) mg/dl Est Cr Clr Drug Dosing ml/min Est GFR ( Amer) Est GFR (Non-Af Amer) BUN/Creatinine Ratio (10-20) Glucose (70-99) mg/dl POC Glucose 176 H 99 (70-99) Calcium (8.5-10.1) mg/dl 07/26/18 Range/Units 12:03 WBC (4.8-10.8) K/uL RBC (4.2-5.4) M/uL Hgb (12.0-16.0) g/dL Hct (37-47) % MCV (80-100) fL MCH (25-34) pg MCHC (32-36) g/dL RDW Std Deviation (36.4-46.3) fL RDW Coeff of Jin (11.5-14.5) % Plt Count (130-400) K/uL MPV (7.4-10.4) fL Immature Gran % (Auto) % Neut % (Auto) % Lymph % (Auto) % [place] % (Auto) % Eos % (Auto) % Baso % (Auto) % Immature Gran # (Auto) (0.00-0.02) K/uL Neut # (Auto) (1.4-6.5) K/uL Lymph # (Auto) (1.2-3.4) K/uL [place] # (Auto) (0.11-0.59) K/uL Eos # (Auto) (0-0.5) K/uL Baso # (Auto) (0-0.2) K/uL Sodium (136-145) mmol/L Potassium (3.5-5.1) mmol/L Chloride (98-107) mmol/L Carbon Dioxide (21-32) mmol/L Anion Gap (3-11) BUN (7-18) mg/dl Creatinine (0.6-1.2) mg/dl Est Cr Clr Drug Dosing ml/min Est GFR ( Amer) Est GFR (Non-Af Amer) BUN/Creatinine Ratio (10-20) Glucose (70-99) mg/dl POC Glucose 149 H (70-99) Calcium (8.5-10.1) mg/dl
[2018-07-27] MEDS: DOCUSATE SODIUM/SENNA 50/8.6MG TAB PO SCH ×2 (13:15→21:22)
[2018-07-27] MEDS ORDERED: Nursing to Pharmacy Communication ONE (16:29)
--- NOTE | 2018-07-27 16:30 | Hospitalist Progress Note ---
Date of Service July 27, 2018 Assessment & Plan (1) Ventral hernia: (2) SBO (small bowel obstruction): Present on admission with abdominal pain CT abd/pelvis showed Dilated small bowel in the anterior mid abdomen containing feces. A mild transition to less dilated caliber to suggest a partial small bowel obstruction. Additionally, the antimesenteric wall is contained within the periumbilical hernia (Andres-type hernia). The presence of associated fluid within the hernia sac raises concern for strangulation. S/P day#3 Laparoscopic repair of multiple ventral hernias with mesh performed by Dr. Enrique MD No post op complication Continue pain control Incentive spirometry Hgb 9.9 today Monitor H/H Continue clear liquid diet Clinically improves Syncope Mostly due to Vasovagal CT head showed no acute intracranial finding ECHO showed no LV wall motion abnormalities with EF greater 70 No further episode Stable Hypertension. BP started to elevate, possible related to pain Continue amlodipine. Will resume Cozaar and hydrochlorothiazide Monitor BP Hyperlipidemia Will resume statin in am Hypothyroidism. Continue Synthroid. Anxiety/depression. Continue Zoloft and Ativan prn Migraines. On Fioricet p.r.n. Asthma, D any symptoms Continue Neb treatment Stable Diastolic dysfunction, We will monitor for volume overload. Discontinued IVF Stable Chronic kidney disease stage III Creatinine stable DVT px as per ortho Code Status Full code Disposition As per Ortho Subjective Pt was seen and examined Lying in bed with no distress Pt said that pain is improved Does not have any BM yet Tolerated clear liquid diet She has been walking around Denies any chest pain, palpitation, dizziness and SOB Physical Exam Physical Exam: General- No acute distress Head- atraumatic Eyes- PERRL, EOMI, ENT- oropharynx clear Neck- supple, no JVD Lungs- clear to auscultation Heart- regular rhythm; no murmur Abdomen- normal bowel sounds, soft, +tender Extremities- no calf tenderness Neuro- alert, oriented x 3; PERRL, EOMI; no facial palsy; no dysarthria Skin- warm & dry Results & Data Vital Signs (Past 12 Hours) Vital Signs Temp Pulse Resp BP Pulse Ox 07/27/18 15:22 36.6 C 69 17 154/78 H 98 07/27/18 07:12 36.4 C L 74 18 147/68 H 96
--- NOTE | 2018-07-27 20:16 | XRay Report ---
XR chest 1V portable HISTORY: 72 years-old Female sob acute shortness of breath COMPARISON: Chest radiograph 07/23/2018 TECHNIQUE: Portable AP view of the chest FINDINGS: Cardiac silhouette is mildly enlarged, unchanged. Calcification of the thoracic aortic arch. No pneum othorax, pleural effusion, focal airspace consolidation or overt pulmonary edema. Degenerative change s of the shoulders and spine. IMPRESSION: Cardiomegaly without acute process. The above report was generated using voice recognition software. It may contain grammatical, syntax o r spelling errors. Electronically signed by: Dionisio Torres M.D. 07/27/2018 8:15 PM
[2018-07-27] MEDS ORDERED: hydroCHLOROthiazide 25 MG TAB PO STA (23:21)
[2018-07-28] MEDS: ACETAMINOPHEN 1,000 MG/100 ML VIAL IV SCH ×3 (01:47→19:02)
[2018-07-28] MEDS: LEVOTHYROXINE SODIUM 50 MCG TABLET PO SCH (05:50)
--- NOTE | 2018-07-28 09:01 | Surgery Progress Note ---
Date of Service July 28, 2018 Assessment & Plan (1) Ventral hernia: doing well. no acute surgical issues syncope w/u complete by medicine will advance diet. if tolerates will plan d/c tomorrow. Subjective feeling better. +BM. no more near syncopal epidsodes. Physical Exam Physical Exam: alert. nad abd: soft. wounds look good. Results & Data Vital Signs (Past 12 Hours) Vital Signs Temp Pulse Resp BP Pulse Ox 07/28/18 07:22 36.8 C 63 18 160/76 H 98 07/27/18 22:46 36.7 C 66 16 110/64 96
[2018-07-28] MEDS: SERTRALINE HCL 100 MG TABLET PO SCH (09:16)
[2018-07-28] MEDS: AMLODIPINE BESYLATE 5 MG TAB PO SCH (09:16)
[2018-07-28] MEDS: DOCUSATE SODIUM/SENNA 50/8.6MG TAB PO SCH ×2 (09:16→20:35)
[2018-07-28] MEDS: PANTOprazole 40 MG TAB PO SCH (09:16)
[2018-07-28] MEDS: INSULIN ASPART 100 UNITS/ML 3 ML PEN SC SCH ×4 (09:17→21:05)
[2018-07-28] MEDS: FLUTICASONE/SALMETEROL 250/50 (ADVAIR) 14 PUFF/1 INHALER INH SCH ×2 (09:17→20:34)
[2018-07-28] MEDS: ENOXAPARIN INJ 60 MG/0.6 ML SYR SQ SCH (09:17)
--- NOTE | 2018-07-28 18:56 | Hospitalist Progress Note ---
Date of Service July 28, 2018 Assessment & Plan (1) Ventral hernia: Presented with ventral hernias + SBO. Laparoscopic repair ventral hernias with lysis of adhesions performed on 07/24/2018. Doing well postoperatively. (2) Syncope: Probable vasovagal episode. No recurrence. (3) Hypertension: Blood pressure this morning = 160/76. Continue amlodipine. Resume hydrochlorothiazide and losartan. (4) Asthma: Pulmonary status stable. Continue incentive spirometry. (5) CKD (chronic kidney disease), stage III: Serum creatinine yesterday 0.81. (6) Dyslipidemia: Continue atorvastatin. (7) Hypothyroidism: Continue levothyroxine. (8) DVT prophylaxis: SQ enoxaparin. Ambulate. (9) Discharge planning issues: Anticipated discharge to home. Internal Medicine follow-up with Dr. Syed. (10) Encounter for consultation: Thank you for this consultation. We will follow the patient with you during their hospital stay. My cell # is [phone]. You can reach a member of the [facility] Medicine Team 24/10 via pager @ [phone]. Subjective Recheck for postop medical management. Patient seen in their room around 1230. Experiencing fluid retention and some dyspnea yesterday, better today. No significant cough. Perform incentive spirometry. Passing flatus and stool. Review of Systems: Constitutional- no fever. Cardiac- no chest pain. Pulmonary- as noted above GI- no nausea, vomiting, melena, hematochezia. - no urinary symptoms. Otherwise, as noted above. Physical Exam Constitutional: no acute distress Respiratory: no respiratory distress Auscultation: lungs clear to auscultation bilaterally Cardiovascular: Rate/Rhythm: regular rate and regular rhythm Heart Sounds: + murmur (I/ sys murmur at base); no gallop and no cardiac rub Vessels: no JVD Extremities: + edema (trace pretibial); no calf tenderness Gastrointestinal (Abdomen): Inspection/Auscultation: + abdomen abnormal to inspection (wearing abdominal binder) Skin: no rashes, warm and dry Psychiatric: Orientation: alert and oriented x 3 Results & Data Vital Signs (Past 12 Hours) Vital Signs Temp Pulse Resp BP Pulse Ox 07/28/18 15:05 37.2 C 69 17 138/79 100 07/28/18 07:22 36.8 C 63 18 160/76 H 98 Laboratory Results Laboratory Results - last 24 hr 07/27/18 07/28/18 07/28/18 20:31 08:22 12:19 POC Glucose 128 H 103 H 115 H 07/28/18 17:04 POC Glucose 98
[2018-07-29] MEDS: ACETAMINOPHEN 1,000 MG/100 ML VIAL IV SCH ×2 (01:42→10:32)
[2018-07-29] MEDS: LEVOTHYROXINE SODIUM 50 MCG TABLET PO SCH (06:20)
--- NOTE | 2018-07-29 08:02 | Hospitalist Progress Note ---
Date of Service July 29, 2018 Assessment & Plan (1) Ventral hernia: Presented with ventral hernias + SBO. Laparoscopic repair ventral hernias with lysis of adhesions performed on 07/24/2018. Doing well postoperatively. (2) Syncope: Probable vasovagal episode. No recurrence. (3) Hypertension: Blood pressure this morning = 147/73. Continue amlodipine, hydrochlorothiazide, and losartan. (4) Asthma: Pulmonary status stable. Continue incentive spirometry. (5) CKD (chronic kidney disease), stage III: Serum creatinine 07/27 was 0.81. (6) Diabetes mellitus type 2, controlled: Diet-controlled. Last Hgb A1C in clinic was 6.4. FBS this morning = 116. (7) Dyslipidemia: Continue atorvastatin. (8) Hypothyroidism: Continue levothyroxine. (9) Discharge planning issues: Anticipated discharge to home. Internal Medicine follow-up with Dr. Syed. (10) DVT prophylaxis: SQ enoxaparin. Ambulate. (11) Encounter for consultation: Thank you for this consultation. We will follow the patient with you during their hospital stay. My cell # is [phone]. You can reach a member of the [facility] Medicine Team 24/10 via pager @ [phone]. Subjective Recheck for postop medical management. Patient seen in their room around 0740. Didn't sleep well last night. No cough or SOB. Performing incentive spirometry. Less postop pain. Passing flatus and loose stool. Review of Systems: Constitutional- no fever. Cardiac- no chest pain. Pulmonary- as noted above GI- no nausea, vomiting, melena, hematochezia. - no urinary symptoms. Otherwise, as noted above. Physical Exam Constitutional: no acute distress Respiratory: no respiratory distress Auscultation: lungs clear to auscultation bilaterally Cardiovascular: Rate/Rhythm: regular rate and regular rhythm Heart Sounds: + murmur (I/ sys murmur at base); no gallop and no cardiac rub Vessels: no JVD Extremities: + edema (trace pretibial); no calf tenderness Gastrointestinal (Abdomen): Inspection/Auscultation: abdomen normal to inspection (surgical incisions without erythema or drainage) and normal bowel sounds Percussion/Palpation: abdomen soft; abdomen nontender Skin: no rashes, warm and dry Psychiatric: Orientation: alert and oriented x 3 Results & Data Vital Signs (Past 12 Hours) Vital Signs Temp Pulse Pulse Resp BP Pulse Ox 07/29/18 07:30 36.7 C 62 16 147/73 H 98 07/28/18 23:25 37.3 C 64 18 144/77 H 97
[2018-07-29] MEDS: INSULIN ASPART 100 UNITS/ML 3 ML PEN SC SCH ×2 (08:41→12:41)
[2018-07-29] MEDS ORDERED: ATORVASTATIN 40 MG TAB PO SCH (09:00)
[2018-07-29] MEDS ORDERED: hydroCHLOROthiazide 25 MG TAB PO SCH (09:00)
[2018-07-29] MEDS ORDERED: LOSARTAN POTASSIUM 25 MG TAB PO SCH (09:00)
[2018-07-29] MEDS: DOCUSATE SODIUM/SENNA 50/8.6MG TAB PO SCH (09:23)
[2018-07-29] MEDS: AMLODIPINE BESYLATE 5 MG TAB PO SCH (09:23)
[2018-07-29] MEDS: PANTOprazole 40 MG TAB PO SCH (09:23)
[2018-07-29] MEDS: SERTRALINE HCL 100 MG TABLET PO SCH (09:23)
[2018-07-29] MEDS: FLUTICASONE/SALMETEROL 250/50 (ADVAIR) 14 PUFF/1 INHALER INH SCH (09:23)
[2018-07-29] MEDS: ENOXAPARIN INJ 60 MG/0.6 ML SYR SQ SCH (09:24)
--- NOTE | 2018-07-29 09:45 | Surgery Progress Note ---
Date of Service July 29, 2018 Assessment & Plan (1) Ventral hernia: ok for d/c instructions given. pt with no hx of dvt per her. discussed frequent ambulation and compressing stockings at home. Subjective doing better each day. +BM/maryuri diet. no new complaints. Physical Exam Physical Exam: alert. nad. wounds look good. Results & Data Vital Signs (Past 12 Hours) Vital Signs Temp Pulse Pulse Resp BP Pulse Ox 07/29/18 07:30 36.7 C 62 16 147/73 H 98 07/28/18 23:25 37.3 C 64 18 144/77 H 97
[2018-07-29] MEDS: OXYCODONE HCL IR 5 MG TAB (IMMEDIATE RELEASE) PO PRN (10:23)
[2018-07-29] MEDS: TRAMADOL HCL 50 MG TABLET PO PRN (13:10)
--- OUTSIDE RECORDS SUMMARY | 2018-07-30 15:37 | External Medical Summary | Continuity of Care Document ---
:1945 Author Name Leydi Charles Address Unavailable Unavailable , Care Team Providers Name Role Phone Unavailable Unavailable Unavailable Gurinder [email or web address] Unavailable Unavailable Unavailable Unavailable Unavailable Problems Transient ischemic attack (435.9) (G45.9) Lupus (710.0) (M32.9) Asthma (493.90) (J45.909) Lymph nodes enlarged (785.6) (R59.9) Atrial fibrillation (427.31) (I48.91) GERD (gastroesophageal reflux disease) (530.81) (K21.9) Diabetes (250.00) (E11.9) Anemia (285.9) (D64.9) Allergies and Adverse Reactions Bee sting (Allergy) Medications Advair Diskus 250-50 MCG/DOSE Inhalation Aerosol Powder Breath Activated; INHALE 1 PUFF EVERY 12 HOURS. NORMA Fairchild Start: 28-Jan-2016 Quantity: 1 60 Aerosol Powder Br eath Activated Disp Pack Refills: 6 Albuterol Sulfate (2.5 MG/3ML) 0.083% In halation Nebulization Solution; USE 1 UNIT DOSE IN NEBULIZER EVERY 4 HOURS NEEDED. NORMA Fairchild Start: 28-Jan-2016 Quantity: 1 3 ML Plas Cont (125 Plas Conts) Refills: 6 Pia 180 MG TABS; TAKE 1 TABLET DAILY NEEDED FOR ALLER GIES. , M.D. Refills: 0 Ventolin HFA 108 (90 Base) MCG/ACT Inhal ation Aerosol Solution; INHALE 2 PUFFS EVERY 4 HOURS NEEDED , M.D. 18 GM Inhaler Quantity: 1 Refills: 0 Ujzqzrdaqq-SLWF-Nqhiiuqq 50-325-40 MG Or al Capsule; TAKE 1 CAPSULE EVERY 6 HOURS NEEDED FOR MIGRAINES. , M.D. Quantity: 30 Refills: 1 Norvasc 5 MG Oral Tablet; TAKE 1 TABLET DAILY DIRECTED. , M.D. Quantity: 90 Refills: 3 Lipitor 40 MG Oral Tablet; TAKE 1 TABLET DAILY. , M.D. Quantity: 90 Refills: 3 Synthroid 50 MCG Oral Tablet; TAKE 1 TABLET DAILY DIRECTE D. , M.D. Refills: 0 Zofran 4 MG Oral Tablet; TAKE 1 TABLET Every 4 hours PRN santo [place]uro M.D. Refills: 0 Colace 100 MG Oral Capsule , M.D. Refills: 0 Senna S 8.6-50 MG Oral Tablet , M.D. Refills: 0 HYDROcodone-Acetaminophen 7.5-325 MG Oral Tablet , M.D. Refills: 0 MiraLax Oral Powder , M.D. Refills: 0 hydroCHLOROthiazide 12.5 MG Oral Capsule; one on Sat & Sun , M.D. Refills: 0 Protonix 40 MG Oral Tablet Delayed Release , M.D. Refills: 0 levETIRAcetam 500 MG Oral Tablet; TAKE 1 TABLET TWICE DAILY DIRECTED. , M.D. Refills: 0 HumaLOG 100 UNIT/ML Subcutaneous Solution; USE DIRE CTED PER SLIDING SCALE , M.DRaghav Quantity: 45 Refills: 3 Peridex 0.12 % Mouth/Throat Solution; RI NSE MOUTH WITH 15ML (1 CAPFUL) FOR 30 SECONDS AM AND PM AFTER TOOTHBRUSHING. EXPECTORATE AFTER RINSING, DO NOT SWALLOW , M.D. Refills: 0 Procedures History of Cholecystectomy Status: Compl eted History of Hysterectomy Status: Complete d History of Colon Surgery Status: Complet ed History of Neuroplasty Decompression Median Nerve At Carpal Status: Completed Tunnel History of Knee Replacement Status: Comp leted Immunizations Immunizations not documented Family History Mother Family history of diabetes mellitus (V18.0) (Z83.3) Status: Active Father Family history of lung disease (V19.8) (Z83.6) Status: Activ e Social History - Smoking Status Never smoker Plan of Treatment Planned Observations Planned Goals not documented Results No Known Results Results not documented
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
== END 2018-07-29 13:45 | disposition home or self-care (01) | DRG 336 ==
LOC: ED 15:34 → 3N 20:50
DX: Z86.79 Personal history of other diseases of the circulatory system; E78.5 Hyperlipidemia, unspecified; Z86.73 Personal history of transient ischemic attack (TIA), and cerebral infarction without residual deficits; E03.9 Hypothyroidism, unspecified; K21.9 Gastro-esophageal reflux disease without esophagitis; J45.40 Moderate persistent asthma, uncomplicated; N18.3 Chronic kidney disease, stage 3 (moderate); N32.81 Overactive bladder; Z87.19 Personal history of other diseases of the digestive system; E66.01 Morbid (severe) obesity due to excess calories; E11.22 Type 2 diabetes mellitus with diabetic chronic kidney disease; F41.1 Generalized anxiety disorder; Z68.43 Body mass index [BMI] 50.0-59.9, adult; F32.9 Major depressive disorder, single episode, unspecified; Z79.899 Other long term (current) drug therapy; R55 Syncope and collapse; G43.909 Migraine, unspecified, not intractable, without status migrainosus; Z90.49 Acquired absence of other specified parts of digestive tract; K66.0 Peritoneal adhesions (postprocedural) (postinfection); K43.6 Other and unspecified ventral hernia with obstruction, without gangrene; Z91.81 History of falling; I12.9 Hypertensive chronic kidney disease with stage 1 through stage 4 chronic kidney disease, or unspecified chronic kidney disease